=== PATIENT | male | born 1965 | race African-American/Black ===

== ENCOUNTER 2018-09-04 11:33 | Inpatient (IN) | payer OTHER | END 2018-09-08 16:20 | disposition home or self-care (01) | LOC: YASAS 11:33 → Y6N 13:48 ==

== ENCOUNTER 2021-11-06 16:31 | Inpatient (IN) | payer OTHER ==
[2021-11-06 18:26] VITALS: BMI 18.8
[2021-11-07] MEDS ORDERED: NALOXONE HCL 0.4 MG/ML VIAL IM PRN (00:20)
[2021-11-07] MEDS ORDERED: NALOXONE HCL (KLOXXADO) 8 MG SPRAY NS PRN (00:20)
[2021-11-07] MEDS ORDERED: ACETAMINOPHEN 325 MG TABLET (FP) PO PRN (00:20)
[2021-11-07] MEDS ORDERED: LOPERAMIDE HCL 2 MG CAPSULE PO PRN (00:20)
[2021-11-07] MEDS ORDERED: P-EPHED 60MG/TRIPROLIDI 2.5MG TABLET PO PRN (00:20)
[2021-11-07] MEDS ORDERED: guaiFENesin 200 MG/10 ML 10 ML UNIT-DOSE CUPS PO PRN (00:20)
[2021-11-07] MEDS ORDERED: MAGNESIUM CITRATE 300 ML BOTTLE PO PRN (00:20)
[2021-11-07] MEDS ORDERED: NICOTINE POLACRILEX 2 MG GUM BUC PRN (00:20)
[2021-11-07] MEDS ORDERED: MAGNESIUM HYDROX 2400MG/30ML ORAL SUSPENSION 30 ML CUP PO PRN (00:20)
[2021-11-07] MEDS ORDERED: methaDONE HCL 10 MG TABLET PO SCH (07:45)
[2021-11-07] MEDS ORDERED: ALBUTEROL SO4 HFA INHALER IH PRN (08:36)
[2021-11-07 10:07] LABS: HEMATOCRIT 33.4 % (35.4-49); HEMOGLOBIN 11.1 GM/dL (11.7-16.9); MCHC 33.2 g/dl (32.0-35.9); MEAN CELL VOLUME 87.4 fl (80-96); MEAN PLT VOLUME 7.8 fl (7.5-11.1); PLATELET COUNT 368 10^3/uL (134-434); RBC 3.83 M/mm3 (4.00-5.60); RDW 14.2 % (11.9-15.9); WHITE BLOOD COUNT 4.5 K/mm3 (4.0-10.0)
[2021-11-07] MEDS: amLODIPine BESYLATE 10 MG TABLET (FP) PO SCH (10:14)
[2021-11-07] MEDS: FAMOTIDINE 20 MG TABLET PO SCH (10:14)
[2021-11-07] MEDS: FERROUS SO4 325 MG TABLET (FP) PO SCH (10:14)
[2021-11-07] MEDS: PRENATAL VITAMINS W/ FOLIC ACID TABLET (FP) PO SCH (10:15)
[2021-11-07] MEDS: NICOTINE 14 MG/24 HOURS TOPICAL PATCH TD SCH (10:15)
[2021-11-07] MEDS: DOCUSATE SODIUM 100 MG CAPSULE (FP) PO SCH ×2 (10:15→21:39)
[2021-11-07] MEDS: AMOXICILLIN 500 MG CAPSULE (FP) PO SCH ×2 (10:49→21:40)
[2021-11-07] MEDS: EMTRICITAB/RILPIVIRI/TENOF ALA (ODEFSEY) TABLET PO SCH (10:50)
[2021-11-07 11:31] LABS: SYPHILIS W/ RPR CONF NON-REACTIVE (NONREACTIVE)
[2021-11-07 12:20] LABS: BLOOD UREA NITROGEN 19.4 mg/dL (7-18)
[2021-11-07 12:22] LABS: CALCIUM 8.9 mg/dL (8.5-10.1)
[2021-11-07 12:23] LABS: ALBUMIN 2.7 g/dl (3.4-5.0)
[2021-11-07 12:26] LABS: BILIRUBIN,TOTAL 0.2 mg/dL (0.2-1); CREATININE 1.4 mg/dL (0.55-1.3)
[2021-11-07] MEDS: TOLNAFTATE 1% CREAM 15 GM TUBE TP SCH ×2 (14:31→21:45)
[2021-11-07] MEDS: ATORVASTATIN CA 20 MG TABLET (FP) PO SCH (21:39)
[2021-11-07] MEDS: MELATONIN 5 MG TABLETS PO SCH (21:39)
[2021-11-07] MEDS: THIAMINE HCL 100 MG TABLET (FP) PO SCH (21:39)
[2021-11-07] MEDS: TAMSULOSIN HCL 0.4 MG CAP PO SCH (21:40)
[2021-11-07] MEDS: PATIENT'S OWN MEDICATION (NON-FORMULARY) (Pravastatin Sodium [Pravastatin Sodium] 20 MG Ta PO SCH (21:40)
[2021-11-07] MEDS ORDERED: SENNOSIDES 8.6MG TABLET (FP) PO SCH (22:00)
[2021-11-07] MEDS: SENNOSIDES 8.6MG TABLET (FP) PO SCH (23:43)
[2021-11-08] MEDS: EMTRICITAB/RILPIVIRI/TENOF ALA (ODEFSEY) TABLET PO SCH (07:10)
[2021-11-08] MEDS: MAG HYDROX/AL HYDROX/SIMETH 30 ML UNIT-DOSE CUP PO PRN (08:32)
[2021-11-08] MEDS: TOLNAFTATE 1% CREAM 15 GM TUBE TP SCH ×2 (09:30→22:10)
[2021-11-08] MEDS: PRENATAL VITAMINS W/ FOLIC ACID TABLET (FP) PO SCH (09:30)
[2021-11-08] MEDS: DOCUSATE SODIUM 100 MG CAPSULE (FP) PO SCH ×2 (09:31→21:56)
[2021-11-08] MEDS: FERROUS SO4 325 MG TABLET (FP) PO SCH (09:31)
[2021-11-08] MEDS: FAMOTIDINE 20 MG TABLET PO SCH (09:31)
[2021-11-08] MEDS: NICOTINE 14 MG/24 HOURS TOPICAL PATCH TD SCH (09:32)
[2021-11-08] MEDS: amLODIPine BESYLATE 10 MG TABLET (FP) PO SCH (09:32)
[2021-11-08] MEDS: AMOXICILLIN 500 MG CAPSULE (FP) PO SCH ×2 (09:32→21:54)
[2021-11-08] MEDS: SENNOSIDES 8.6MG TABLET (FP) PO SCH (21:54)
[2021-11-08] MEDS: ATORVASTATIN CA 20 MG TABLET (FP) PO SCH (21:55)
[2021-11-08] MEDS: hydrOXYzine PAMOATE 25 MG CAPSULE (FP) PO PRN (21:55)
[2021-11-08] MEDS: PATIENT'S OWN MEDICATION (NON-FORMULARY) (Pravastatin Sodium [Pravastatin Sodium] 20 MG Ta PO SCH (21:55)
[2021-11-08] MEDS: TAMSULOSIN HCL 0.4 MG CAP PO SCH (21:55)
[2021-11-08] MEDS: THIAMINE HCL 100 MG TABLET (FP) PO SCH (21:56)
[2021-11-08] MEDS: MELATONIN 5 MG TABLETS PO SCH (21:56)
[2021-11-09] MEDS: EMTRICITAB/RILPIVIRI/TENOF ALA (ODEFSEY) TABLET PO SCH (07:33)
[2021-11-09] MEDS: IBUPROFEN 400 MG TABLET (FP) PO PRN (08:49)
[2021-11-09] MEDS: amLODIPine BESYLATE 10 MG TABLET (FP) PO SCH (09:56)
[2021-11-09] MEDS: DOCUSATE SODIUM 100 MG CAPSULE (FP) PO SCH ×2 (09:56→21:23)
[2021-11-09] MEDS: PRENATAL VITAMINS W/ FOLIC ACID TABLET (FP) PO SCH (09:56)
[2021-11-09] MEDS: FERROUS SO4 325 MG TABLET (FP) PO SCH (09:56)
[2021-11-09] MEDS: AMOXICILLIN 500 MG CAPSULE (FP) PO SCH ×2 (09:56→21:23)
[2021-11-09] MEDS: FAMOTIDINE 20 MG TABLET PO SCH (09:56)
[2021-11-09] MEDS: NICOTINE 14 MG/24 HOURS TOPICAL PATCH TD SCH (09:57)
[2021-11-09] MEDS: TOLNAFTATE 1% CREAM 15 GM TUBE TP SCH ×2 (09:57→21:27)
[2021-11-09] MEDS: MAG HYDROX/AL HYDROX/SIMETH 30 ML UNIT-DOSE CUP PO PRN (13:06)
[2021-11-09] MEDS: PATIENT'S OWN MEDICATION (NON-FORMULARY) (Pravastatin Sodium [Pravastatin Sodium] 20 MG Ta PO SCH (21:22)
[2021-11-09] MEDS: ATORVASTATIN CA 20 MG TABLET (FP) PO SCH (21:23)
[2021-11-09] MEDS: SENNOSIDES 8.6MG TABLET (FP) PO SCH (21:23)
[2021-11-09] MEDS: THIAMINE HCL 100 MG TABLET (FP) PO SCH (21:23)
[2021-11-09] MEDS: hydrOXYzine PAMOATE 25 MG CAPSULE (FP) PO PRN (21:23)
[2021-11-09] MEDS: TAMSULOSIN HCL 0.4 MG CAP PO SCH (21:23)
[2021-11-09] MEDS: MELATONIN 5 MG TABLETS PO SCH (21:24)
[2021-11-10] MEDS: MAG HYDROX/AL HYDROX/SIMETH 30 ML UNIT-DOSE CUP PO PRN ×2 (06:05→21:22)
[2021-11-10] MEDS: EMTRICITAB/RILPIVIRI/TENOF ALA (ODEFSEY) TABLET PO SCH (07:12)
[2021-11-10] MEDS: FAMOTIDINE 20 MG TABLET PO SCH (09:56)
[2021-11-10] MEDS: amLODIPine BESYLATE 10 MG TABLET (FP) PO SCH (09:56)
[2021-11-10] MEDS: FERROUS SO4 325 MG TABLET (FP) PO SCH (09:56)
[2021-11-10] MEDS: AMOXICILLIN 500 MG CAPSULE (FP) PO SCH ×2 (09:56→21:18)
[2021-11-10] MEDS: DOCUSATE SODIUM 100 MG CAPSULE (FP) PO SCH ×2 (09:56→21:18)
[2021-11-10] MEDS: PRENATAL VITAMINS W/ FOLIC ACID TABLET (FP) PO SCH (09:56)
[2021-11-10] MEDS: NICOTINE 14 MG/24 HOURS TOPICAL PATCH TD SCH (09:57)
[2021-11-10] MEDS: TOLNAFTATE 1% CREAM 15 GM TUBE TP SCH ×2 (09:57→21:19)
[2021-11-10 13:40] LABS: PH,URINE 5.5 (5.0-8.0); URINE APPEARANCE CLEAR; URINE BILIRUBIN NEGATIVE (NEGATIVE); URINE COLOR YELLOW; URINE GLUCOSE (UA) NEGATIVE (NEGATIVE); URINE KETONE NEGATIVE (NEGATIVE); URINE LEUK ESTERASE NEGATIVE (NEGATIVE); URINE NITRITE NEGATIVE (NEGATIVE); URINE PROTEIN NEGATIVE (NEGATIVE); URINE UROBILINOGEN 0.2 mg/dL (0.2-1.0)
[2021-11-10] MEDS: TAMSULOSIN HCL 0.4 MG CAP PO SCH (21:18)
[2021-11-10] MEDS: THIAMINE HCL 100 MG TABLET (FP) PO SCH (21:18)
[2021-11-10] MEDS: SENNOSIDES 8.6MG TABLET (FP) PO SCH (21:18)
[2021-11-10] MEDS: ATORVASTATIN CA 20 MG TABLET (FP) PO SCH (21:18)
[2021-11-10] MEDS: hydrOXYzine PAMOATE 25 MG CAPSULE (FP) PO PRN (21:18)
[2021-11-10] MEDS: MELATONIN 5 MG TABLETS PO SCH (21:18)
[2021-11-10] MEDS: PATIENT'S OWN MEDICATION (NON-FORMULARY) (Pravastatin Sodium [Pravastatin Sodium] 20 MG Ta PO SCH (21:23)
[2021-11-11] MEDS: MAG HYDROX/AL HYDROX/SIMETH 30 ML UNIT-DOSE CUP PO PRN (07:24)
[2021-11-11] MEDS: AMOXICILLIN 500 MG CAPSULE (FP) PO SCH ×2 (10:04→21:08)
[2021-11-11] MEDS: FERROUS SO4 325 MG TABLET (FP) PO SCH (10:04)
[2021-11-11] MEDS: DOCUSATE SODIUM 100 MG CAPSULE (FP) PO SCH ×2 (10:04→21:08)
[2021-11-11] MEDS: NICOTINE 14 MG/24 HOURS TOPICAL PATCH TD SCH (10:05)
[2021-11-11] MEDS: TOLNAFTATE 1% CREAM 15 GM TUBE TP SCH ×2 (10:05→21:08)
[2021-11-11] MEDS: FAMOTIDINE 20 MG TABLET PO SCH (10:05)
[2021-11-11] MEDS: PRENATAL VITAMINS W/ FOLIC ACID TABLET (FP) PO SCH (10:05)
[2021-11-11] MEDS: amLODIPine BESYLATE 10 MG TABLET (FP) PO SCH (10:05)
[2021-11-11] MEDS: EMTRICITAB/RILPIVIRI/TENOF ALA (ODEFSEY) TABLET PO SCH (10:24)
[2021-11-11] MEDS: THIAMINE HCL 100 MG TABLET (FP) PO SCH (21:06)
[2021-11-11] MEDS: TAMSULOSIN HCL 0.4 MG CAP PO SCH (21:06)
[2021-11-11] MEDS: MELATONIN 5 MG TABLETS PO SCH (21:06)
[2021-11-11] MEDS: SENNOSIDES 8.6MG TABLET (FP) PO SCH (21:07)
[2021-11-11] MEDS: hydrOXYzine PAMOATE 25 MG CAPSULE (FP) PO PRN (21:07)
[2021-11-11] MEDS: PATIENT'S OWN MEDICATION (NON-FORMULARY) (Pravastatin Sodium [Pravastatin Sodium] 20 MG Ta PO SCH (21:08)
[2021-11-12] MEDS: MAG HYDROX/AL HYDROX/SIMETH 30 ML UNIT-DOSE CUP PO PRN ×2 (02:24→18:54)
[2021-11-12] MEDS: EMTRICITAB/RILPIVIRI/TENOF ALA (ODEFSEY) TABLET PO SCH (07:24)
[2021-11-12] MEDS: DOCUSATE SODIUM 100 MG CAPSULE (FP) PO SCH ×2 (10:16→21:11)
[2021-11-12] MEDS: PRENATAL VITAMINS W/ FOLIC ACID TABLET (FP) PO SCH (10:16)
[2021-11-12] MEDS: amLODIPine BESYLATE 10 MG TABLET (FP) PO SCH (10:16)
[2021-11-12] MEDS: AMOXICILLIN 500 MG CAPSULE (FP) PO SCH ×2 (10:17→21:11)
[2021-11-12] MEDS: FERROUS SO4 325 MG TABLET (FP) PO SCH (10:17)
[2021-11-12] MEDS: TOLNAFTATE 1% CREAM 15 GM TUBE TP SCH ×2 (10:17→21:13)
[2021-11-12] MEDS: NICOTINE 14 MG/24 HOURS TOPICAL PATCH TD SCH (10:17)
[2021-11-12] MEDS ORDERED: FAMOTIDINE 10 MG TABLET PO SCH (12:00)
[2021-11-12] MEDS: MELATONIN 5 MG TABLETS PO SCH (21:10)
[2021-11-12] MEDS: THIAMINE HCL 100 MG TABLET (FP) PO SCH (21:10)
[2021-11-12] MEDS: SENNOSIDES 8.6MG TABLET (FP) PO SCH (21:11)
[2021-11-12] MEDS: hydrOXYzine PAMOATE 25 MG CAPSULE (FP) PO PRN (21:11)
[2021-11-12] MEDS: TAMSULOSIN HCL 0.4 MG CAP PO SCH (21:11)
[2021-11-12] MEDS: FAMOTIDINE 10 MG TABLET PO SCH (21:13)
[2021-11-12] MEDS: PATIENT'S OWN MEDICATION (NON-FORMULARY) (Pravastatin Sodium [Pravastatin Sodium] 20 MG Ta PO SCH (21:13)
[2021-11-13] MEDS: MAG HYDROX/AL HYDROX/SIMETH 30 ML UNIT-DOSE CUP PO PRN ×2 (07:05→17:20)
[2021-11-13] MEDS: EMTRICITAB/RILPIVIRI/TENOF ALA (ODEFSEY) TABLET PO SCH (07:06)
[2021-11-13] MEDS: PRENATAL VITAMINS W/ FOLIC ACID TABLET (FP) PO SCH (09:54)
[2021-11-13] MEDS: amLODIPine BESYLATE 10 MG TABLET (FP) PO SCH (09:54)
[2021-11-13] MEDS: FERROUS SO4 325 MG TABLET (FP) PO SCH (09:54)
[2021-11-13] MEDS: DOCUSATE SODIUM 100 MG CAPSULE (FP) PO SCH ×2 (09:54→21:21)
[2021-11-13] MEDS: AMOXICILLIN 500 MG CAPSULE (FP) PO SCH ×2 (09:54→21:20)
[2021-11-13] MEDS: TOLNAFTATE 1% CREAM 15 GM TUBE TP SCH ×2 (09:55→21:21)
[2021-11-13] MEDS: NICOTINE 14 MG/24 HOURS TOPICAL PATCH TD SCH (09:55)
[2021-11-13] MEDS: THIAMINE HCL 100 MG TABLET (FP) PO SCH (21:19)
[2021-11-13] MEDS: MELATONIN 5 MG TABLETS PO SCH (21:19)
[2021-11-13] MEDS: FAMOTIDINE 10 MG TABLET PO SCH (21:20)
[2021-11-13] MEDS: TAMSULOSIN HCL 0.4 MG CAP PO SCH (21:21)
[2021-11-13] MEDS: SENNOSIDES 8.6MG TABLET (FP) PO SCH (21:21)
[2021-11-13] MEDS: PATIENT'S OWN MEDICATION (NON-FORMULARY) (Pravastatin Sodium [Pravastatin Sodium] 20 MG Ta PO SCH (21:21)
[2021-11-14] MEDS: EMTRICITAB/RILPIVIRI/TENOF ALA (ODEFSEY) TABLET PO SCH (07:58)
[2021-11-14] MEDS: FERROUS SO4 325 MG TABLET (FP) PO SCH (10:08)
[2021-11-14] MEDS: amLODIPine BESYLATE 10 MG TABLET (FP) PO SCH (10:08)
[2021-11-14] MEDS: DOCUSATE SODIUM 100 MG CAPSULE (FP) PO SCH ×2 (10:08→21:39)
[2021-11-14] MEDS: TOLNAFTATE 1% CREAM 15 GM TUBE TP SCH ×2 (10:08→21:40)
[2021-11-14] MEDS: PRENATAL VITAMINS W/ FOLIC ACID TABLET (FP) PO SCH (10:08)
[2021-11-14] MEDS: NICOTINE 14 MG/24 HOURS TOPICAL PATCH TD SCH (10:08)
[2021-11-14] MEDS: MAG HYDROX/AL HYDROX/SIMETH 30 ML UNIT-DOSE CUP PO PRN (10:09)
[2021-11-14] MEDS: TAMSULOSIN HCL 0.4 MG CAP PO SCH (21:39)
[2021-11-14] MEDS: SENNOSIDES 8.6MG TABLET (FP) PO SCH (21:39)
[2021-11-14] MEDS: PATIENT'S OWN MEDICATION (NON-FORMULARY) (Pravastatin Sodium [Pravastatin Sodium] 20 MG Ta PO SCH (21:39)
[2021-11-14] MEDS: THIAMINE HCL 100 MG TABLET (FP) PO SCH (21:39)
[2021-11-14] MEDS: MELATONIN 5 MG TABLETS PO SCH (21:39)
[2021-11-14] MEDS: FAMOTIDINE 10 MG TABLET PO SCH (21:40)
[2021-11-15] MEDS: EMTRICITAB/RILPIVIRI/TENOF ALA (ODEFSEY) TABLET PO SCH (07:08)
[2021-11-15] MEDS: DOCUSATE SODIUM 100 MG CAPSULE (FP) PO SCH ×2 (09:21→21:10)
[2021-11-15] MEDS: FERROUS SO4 325 MG TABLET (FP) PO SCH (09:21)
[2021-11-15] MEDS: amLODIPine BESYLATE 10 MG TABLET (FP) PO SCH (09:22)
[2021-11-15] MEDS: NICOTINE 14 MG/24 HOURS TOPICAL PATCH TD SCH (09:22)
[2021-11-15] MEDS: PRENATAL VITAMINS W/ FOLIC ACID TABLET (FP) PO SCH (09:22)
[2021-11-15] MEDS: TOLNAFTATE 1% CREAM 15 GM TUBE TP SCH ×2 (09:22→21:12)
[2021-11-15] MEDS: MELATONIN 5 MG TABLETS PO SCH (21:10)
[2021-11-15] MEDS: THIAMINE HCL 100 MG TABLET (FP) PO SCH (21:10)
[2021-11-15] MEDS: TAMSULOSIN HCL 0.4 MG CAP PO SCH (21:10)
[2021-11-15] MEDS: FAMOTIDINE 10 MG TABLET PO SCH (21:11)
[2021-11-15] MEDS: SENNOSIDES 8.6MG TABLET (FP) PO SCH (21:11)
[2021-11-15] MEDS: PATIENT'S OWN MEDICATION (NON-FORMULARY) (Pravastatin Sodium [Pravastatin Sodium] 20 MG Ta PO SCH (21:12)
[2021-11-16] MEDS: MAG HYDROX/AL HYDROX/SIMETH 30 ML UNIT-DOSE CUP PO PRN (07:37)
[2021-11-16] MEDS: EMTRICITAB/RILPIVIRI/TENOF ALA (ODEFSEY) TABLET PO SCH (07:38)
[2021-11-16] MEDS: amLODIPine BESYLATE 10 MG TABLET (FP) PO SCH (09:59)
[2021-11-16] MEDS: PRENATAL VITAMINS W/ FOLIC ACID TABLET (FP) PO SCH (09:59)
[2021-11-16] MEDS: TOLNAFTATE 1% CREAM 15 GM TUBE TP SCH ×2 (09:59→21:09)
[2021-11-16] MEDS: DOCUSATE SODIUM 100 MG CAPSULE (FP) PO SCH ×2 (09:59→21:09)
[2021-11-16] MEDS: FERROUS SO4 325 MG TABLET (FP) PO SCH (09:59)
[2021-11-16] MEDS: NICOTINE 14 MG/24 HOURS TOPICAL PATCH TD SCH (10:00)
[2021-11-16] MEDS: MELATONIN 5 MG TABLETS PO SCH (21:08)
[2021-11-16] MEDS: THIAMINE HCL 100 MG TABLET (FP) PO SCH (21:08)
[2021-11-16] MEDS: SENNOSIDES 8.6MG TABLET (FP) PO SCH (21:09)
[2021-11-16] MEDS: PATIENT'S OWN MEDICATION (NON-FORMULARY) (Pravastatin Sodium [Pravastatin Sodium] 20 MG Ta PO SCH (21:09)
[2021-11-16] MEDS: FAMOTIDINE 10 MG TABLET PO SCH (21:09)
[2021-11-16] MEDS: TAMSULOSIN HCL 0.4 MG CAP PO SCH (21:09)
[2021-11-17] MEDS: EMTRICITAB/RILPIVIRI/TENOF ALA (ODEFSEY) TABLET PO SCH (07:12)
[2021-11-17] MEDS: FERROUS SO4 325 MG TABLET (FP) PO SCH (10:05)
[2021-11-17] MEDS: PRENATAL VITAMINS W/ FOLIC ACID TABLET (FP) PO SCH (10:05)
[2021-11-17] MEDS: amLODIPine BESYLATE 10 MG TABLET (FP) PO SCH (10:05)
[2021-11-17] MEDS: DOCUSATE SODIUM 100 MG CAPSULE (FP) PO SCH ×2 (10:05→21:14)
[2021-11-17] MEDS: NICOTINE 14 MG/24 HOURS TOPICAL PATCH TD SCH (10:06)
[2021-11-17] MEDS: TOLNAFTATE 1% CREAM 15 GM TUBE TP SCH ×2 (10:06→21:15)
[2021-11-17] MEDS: TAMSULOSIN HCL 0.4 MG CAP PO SCH (21:14)
[2021-11-17] MEDS: SENNOSIDES 8.6MG TABLET (FP) PO SCH (21:14)
[2021-11-17] MEDS: THIAMINE HCL 100 MG TABLET (FP) PO SCH (21:14)
[2021-11-17] MEDS: MELATONIN 5 MG TABLETS PO SCH (21:14)
[2021-11-17] MEDS: hydrOXYzine PAMOATE 25 MG CAPSULE (FP) PO PRN (21:14)
[2021-11-17] MEDS: PATIENT'S OWN MEDICATION (NON-FORMULARY) (Pravastatin Sodium [Pravastatin Sodium] 20 MG Ta PO SCH (21:15)
[2021-11-17] MEDS: FAMOTIDINE 10 MG TABLET PO SCH (21:15)
[2021-11-18] MEDS: EMTRICITAB/RILPIVIRI/TENOF ALA (ODEFSEY) TABLET PO SCH (07:06)
[2021-11-18] MEDS: amLODIPine BESYLATE 10 MG TABLET (FP) PO SCH (09:49)
[2021-11-18] MEDS: FERROUS SO4 325 MG TABLET (FP) PO SCH (09:49)
[2021-11-18] MEDS: DOCUSATE SODIUM 100 MG CAPSULE (FP) PO SCH ×2 (09:49→21:17)
[2021-11-18] MEDS: PRENATAL VITAMINS W/ FOLIC ACID TABLET (FP) PO SCH (09:50)
[2021-11-18] MEDS: NICOTINE 14 MG/24 HOURS TOPICAL PATCH TD SCH (09:50)
[2021-11-18] MEDS: TOLNAFTATE 1% CREAM 15 GM TUBE TP SCH ×2 (09:50→21:19)
[2021-11-18] MEDS: MAG HYDROX/AL HYDROX/SIMETH 30 ML UNIT-DOSE CUP PO PRN (09:51)
[2021-11-18] MEDS: THIAMINE HCL 100 MG TABLET (FP) PO SCH (21:17)
[2021-11-18] MEDS: FAMOTIDINE 10 MG TABLET PO SCH (21:17)
[2021-11-18] MEDS: SENNOSIDES 8.6MG TABLET (FP) PO SCH (21:17)
[2021-11-18] MEDS: TAMSULOSIN HCL 0.4 MG CAP PO SCH (21:17)
[2021-11-18] MEDS: PATIENT'S OWN MEDICATION (NON-FORMULARY) (Pravastatin Sodium [Pravastatin Sodium] 20 MG Ta PO SCH (21:18)
[2021-11-18] MEDS: MELATONIN 5 MG TABLETS PO SCH (21:18)
[2021-11-19] MEDS: IBUPROFEN 400 MG TABLET (FP) PO PRN ×2 (06:39→15:12)
[2021-11-19] MEDS: EMTRICITAB/RILPIVIRI/TENOF ALA (ODEFSEY) TABLET PO SCH (07:08)
[2021-11-19] MEDS: NICOTINE 14 MG/24 HOURS TOPICAL PATCH TD SCH (09:40)
[2021-11-19] MEDS: TOLNAFTATE 1% CREAM 15 GM TUBE TP SCH ×2 (09:40→21:16)
[2021-11-19] MEDS: PRENATAL VITAMINS W/ FOLIC ACID TABLET (FP) PO SCH (09:40)
[2021-11-19] MEDS: amLODIPine BESYLATE 10 MG TABLET (FP) PO SCH (09:40)
[2021-11-19] MEDS: DOCUSATE SODIUM 100 MG CAPSULE (FP) PO SCH ×2 (09:40→21:15)
[2021-11-19] MEDS: FERROUS SO4 325 MG TABLET (FP) PO SCH (09:40)
[2021-11-19] MEDS: MAG HYDROX/AL HYDROX/SIMETH 30 ML UNIT-DOSE CUP PO PRN ×2 (09:41→23:49)
[2021-11-19] MEDS: SENNOSIDES 8.6MG TABLET (FP) PO SCH (21:15)
[2021-11-19] MEDS: TAMSULOSIN HCL 0.4 MG CAP PO SCH (21:15)
[2021-11-19] MEDS: MELATONIN 5 MG TABLETS PO SCH (21:15)
[2021-11-19] MEDS: THIAMINE HCL 100 MG TABLET (FP) PO SCH (21:15)
[2021-11-19] MEDS: PATIENT'S OWN MEDICATION (NON-FORMULARY) (Pravastatin Sodium [Pravastatin Sodium] 20 MG Ta PO SCH (21:16)
[2021-11-19] MEDS: FAMOTIDINE 10 MG TABLET PO SCH (21:16)
[2021-11-20] MEDS: EMTRICITAB/RILPIVIRI/TENOF ALA (ODEFSEY) TABLET PO SCH (07:12)
[2021-11-20] MEDS: NICOTINE 14 MG/24 HOURS TOPICAL PATCH TD SCH (10:00)
[2021-11-20] MEDS: DOCUSATE SODIUM 100 MG CAPSULE (FP) PO SCH ×2 (10:00→21:01)
[2021-11-20] MEDS: amLODIPine BESYLATE 10 MG TABLET (FP) PO SCH (10:00)
[2021-11-20] MEDS: PRENATAL VITAMINS W/ FOLIC ACID TABLET (FP) PO SCH (10:00)
[2021-11-20] MEDS: TOLNAFTATE 1% CREAM 15 GM TUBE TP SCH ×2 (10:00→21:02)
[2021-11-20] MEDS: FERROUS SO4 325 MG TABLET (FP) PO SCH (10:00)
[2021-11-20] MEDS: MAG HYDROX/AL HYDROX/SIMETH 30 ML UNIT-DOSE CUP PO PRN (12:22)
[2021-11-20] MEDS: THIAMINE HCL 100 MG TABLET (FP) PO SCH (21:00)
[2021-11-20] MEDS: MELATONIN 5 MG TABLETS PO SCH (21:00)
[2021-11-20] MEDS: SENNOSIDES 8.6MG TABLET (FP) PO SCH (21:01)
[2021-11-20] MEDS: TAMSULOSIN HCL 0.4 MG CAP PO SCH (21:01)
[2021-11-20] MEDS: FAMOTIDINE 10 MG TABLET PO SCH (21:02)
[2021-11-20] MEDS: PATIENT'S OWN MEDICATION (NON-FORMULARY) (Pravastatin Sodium [Pravastatin Sodium] 20 MG Ta PO SCH (21:02)
[2021-11-20] MEDS: IBUPROFEN 400 MG TABLET (FP) PO PRN (21:40)
[2021-11-21] MEDS: EMTRICITAB/RILPIVIRI/TENOF ALA (ODEFSEY) TABLET PO SCH (07:05)
[2021-11-21] MEDS: MAG HYDROX/AL HYDROX/SIMETH 30 ML UNIT-DOSE CUP PO PRN ×2 (07:35→16:39)
[2021-11-21] MEDS: amLODIPine BESYLATE 10 MG TABLET (FP) PO SCH (09:24)
[2021-11-21] MEDS: PRENATAL VITAMINS W/ FOLIC ACID TABLET (FP) PO SCH (09:24)
[2021-11-21] MEDS: FERROUS SO4 325 MG TABLET (FP) PO SCH (09:24)
[2021-11-21] MEDS: DOCUSATE SODIUM 100 MG CAPSULE (FP) PO SCH ×2 (09:24→21:19)
[2021-11-21] MEDS: NICOTINE 14 MG/24 HOURS TOPICAL PATCH TD SCH (09:25)
[2021-11-21] MEDS: TOLNAFTATE 1% CREAM 15 GM TUBE TP SCH ×2 (09:25→21:20)
[2021-11-21] MEDS: TAMSULOSIN HCL 0.4 MG CAP PO SCH (21:19)
[2021-11-21] MEDS: THIAMINE HCL 100 MG TABLET (FP) PO SCH (21:19)
[2021-11-21] MEDS: SENNOSIDES 8.6MG TABLET (FP) PO SCH (21:19)
[2021-11-21] MEDS: MELATONIN 5 MG TABLETS PO SCH (21:19)
[2021-11-21] MEDS: FAMOTIDINE 10 MG TABLET PO SCH (21:20)
[2021-11-21] MEDS: PATIENT'S OWN MEDICATION (NON-FORMULARY) (Pravastatin Sodium [Pravastatin Sodium] 20 MG Ta PO SCH (21:20)
[2021-11-22] MEDS ORDERED: methaDONE HCL 10 MG TABLET PO SCH (06:00)
[2021-11-22] MEDS: EMTRICITAB/RILPIVIRI/TENOF ALA (ODEFSEY) TABLET PO SCH (07:05)
[2021-11-22] MEDS: amLODIPine BESYLATE 10 MG TABLET (FP) PO SCH (09:53)
[2021-11-22] MEDS: DOCUSATE SODIUM 100 MG CAPSULE (FP) PO SCH ×2 (09:53→21:50)
[2021-11-22] MEDS: NICOTINE 14 MG/24 HOURS TOPICAL PATCH TD SCH (09:54)
[2021-11-22] MEDS: FERROUS SO4 325 MG TABLET (FP) PO SCH (09:54)
[2021-11-22] MEDS: TOLNAFTATE 1% CREAM 15 GM TUBE TP SCH ×3 (09:54→21:51)
[2021-11-22] MEDS: PRENATAL VITAMINS W/ FOLIC ACID TABLET (FP) PO SCH (09:54)
[2021-11-22] MEDS: FAMOTIDINE 10 MG TABLET PO SCH (21:00)
[2021-11-22] MEDS: SENNOSIDES 8.6MG TABLET (FP) PO SCH (21:50)
[2021-11-22] MEDS: PATIENT'S OWN MEDICATION (NON-FORMULARY) (Pravastatin Sodium [Pravastatin Sodium] 20 MG Ta PO SCH (21:50)
[2021-11-22] MEDS: THIAMINE HCL 100 MG TABLET (FP) PO SCH (21:50)
[2021-11-22] MEDS: TAMSULOSIN HCL 0.4 MG CAP PO SCH (21:50)
[2021-11-22] MEDS: MELATONIN 5 MG TABLETS PO SCH (21:51)
[2021-11-23] MEDS: EMTRICITAB/RILPIVIRI/TENOF ALA (ODEFSEY) TABLET PO SCH (07:03)
[2021-11-23] MEDS: amLODIPine BESYLATE 10 MG TABLET (FP) PO SCH (09:59)
[2021-11-23] MEDS: FERROUS SO4 325 MG TABLET (FP) PO SCH (09:59)
[2021-11-23] MEDS: DOCUSATE SODIUM 100 MG CAPSULE (FP) PO SCH ×2 (09:59→21:53)
[2021-11-23] MEDS: TOLNAFTATE 1% CREAM 15 GM TUBE TP SCH ×2 (10:00→21:55)
[2021-11-23] MEDS: NICOTINE 14 MG/24 HOURS TOPICAL PATCH TD SCH (10:00)
[2021-11-23] MEDS: PRENATAL VITAMINS W/ FOLIC ACID TABLET (FP) PO SCH (10:00)
[2021-11-23] MEDS: MAG HYDROX/AL HYDROX/SIMETH 30 ML UNIT-DOSE CUP PO PRN (10:01)
[2021-11-23] MEDS: FAMOTIDINE 10 MG TABLET PO SCH (21:20)
[2021-11-23] MEDS: PATIENT'S OWN MEDICATION (NON-FORMULARY) (Pravastatin Sodium [Pravastatin Sodium] 20 MG Ta PO SCH (21:53)
[2021-11-23] MEDS: SENNOSIDES 8.6MG TABLET (FP) PO SCH (21:53)
[2021-11-23] MEDS: MELATONIN 5 MG TABLETS PO SCH (21:54)
[2021-11-23] MEDS: THIAMINE HCL 100 MG TABLET (FP) PO SCH (21:55)
[2021-11-23] MEDS: TAMSULOSIN HCL 0.4 MG CAP PO SCH (22:07)
[2021-11-24] MEDS: EMTRICITAB/RILPIVIRI/TENOF ALA (ODEFSEY) TABLET PO SCH (07:52)
[2021-11-24] MEDS: amLODIPine BESYLATE 10 MG TABLET (FP) PO SCH (09:49)
[2021-11-24] MEDS: PRENATAL VITAMINS W/ FOLIC ACID TABLET (FP) PO SCH (09:50)
[2021-11-24] MEDS: FERROUS SO4 325 MG TABLET (FP) PO SCH (09:50)
[2021-11-24] MEDS: DOCUSATE SODIUM 100 MG CAPSULE (FP) PO SCH ×2 (09:50→21:04)
[2021-11-24] MEDS: TOLNAFTATE 1% CREAM 15 GM TUBE TP SCH ×2 (09:50→21:05)
[2021-11-24] MEDS: NICOTINE 14 MG/24 HOURS TOPICAL PATCH TD SCH (09:50)
[2021-11-24] MEDS: SENNOSIDES 8.6MG TABLET (FP) PO SCH (21:04)
[2021-11-24] MEDS: MELATONIN 5 MG TABLETS PO SCH (21:04)
[2021-11-24] MEDS: THIAMINE HCL 100 MG TABLET (FP) PO SCH (21:04)
[2021-11-24] MEDS: TAMSULOSIN HCL 0.4 MG CAP PO SCH (21:04)
[2021-11-24] MEDS: FAMOTIDINE 10 MG TABLET PO SCH (21:05)
[2021-11-24] MEDS: PATIENT'S OWN MEDICATION (NON-FORMULARY) (Pravastatin Sodium [Pravastatin Sodium] 20 MG Ta PO SCH (21:05)
[2021-11-25] MEDS: EMTRICITAB/RILPIVIRI/TENOF ALA (ODEFSEY) TABLET PO SCH (07:07)
[2021-11-25] MEDS: FERROUS SO4 325 MG TABLET (FP) PO SCH (09:58)
[2021-11-25] MEDS: amLODIPine BESYLATE 10 MG TABLET (FP) PO SCH (09:58)
[2021-11-25] MEDS: PRENATAL VITAMINS W/ FOLIC ACID TABLET (FP) PO SCH (09:58)
[2021-11-25] MEDS: DOCUSATE SODIUM 100 MG CAPSULE (FP) PO SCH ×2 (09:58→21:40)
[2021-11-25] MEDS: NICOTINE 14 MG/24 HOURS TOPICAL PATCH TD SCH (09:59)
[2021-11-25] MEDS: TOLNAFTATE 1% CREAM 15 GM TUBE TP SCH ×2 (09:59→21:42)
[2021-11-25] MEDS: MAG HYDROX/AL HYDROX/SIMETH 30 ML UNIT-DOSE CUP PO PRN (17:01)
[2021-11-25] MEDS: FAMOTIDINE 10 MG TABLET PO SCH (21:11)
[2021-11-25] MEDS: PATIENT'S OWN MEDICATION (NON-FORMULARY) (Pravastatin Sodium [Pravastatin Sodium] 20 MG Ta PO SCH (21:40)
[2021-11-25] MEDS: TAMSULOSIN HCL 0.4 MG CAP PO SCH (21:40)
[2021-11-25] MEDS: SENNOSIDES 8.6MG TABLET (FP) PO SCH (21:40)
[2021-11-25] MEDS: MELATONIN 5 MG TABLETS PO SCH (21:41)
[2021-11-25] MEDS: THIAMINE HCL 100 MG TABLET (FP) PO SCH (21:41)
[2021-11-26 06:55] VITALS: RESP 18; TEMP 97.5
[2021-11-26] MEDS: EMTRICITAB/RILPIVIRI/TENOF ALA (ODEFSEY) TABLET PO SCH (07:20)
[2021-11-26] MEDS: NICOTINE 14 MG/24 HOURS TOPICAL PATCH TD SCH (09:09)
[2021-11-26] MEDS: DOCUSATE SODIUM 100 MG CAPSULE (FP) PO SCH (09:09)
[2021-11-26] MEDS: PRENATAL VITAMINS W/ FOLIC ACID TABLET (FP) PO SCH (09:09)
[2021-11-26] MEDS: amLODIPine BESYLATE 10 MG TABLET (FP) PO SCH (09:09)
[2021-11-26] MEDS: FERROUS SO4 325 MG TABLET (FP) PO SCH (09:09)
[2021-11-26] MEDS: TOLNAFTATE 1% CREAM 15 GM TUBE TP SCH (09:10)
[2021-11-26 09:15] VITALS: BP 105/53; PULSE 85
== END 2021-11-26 09:26 | disposition home or self-care (01) | DRG 772 ==
LOC: YASAS 16:31 → Y3E 11-07 00:20
PROVIDERS: ADMIT Surgery; ATTEND Psychiatry & Neurology Pain Medicine
PROC: HZ42ZZZ Group Counseling for Substance Abuse Treatment, Cognitive-Behavioral (ICD-10-PCS; principal; 2021-11-07)
DX: F11.20 Opioid dependence, uncomplicated (principal); F14.20 Cocaine dependence, uncomplicated; F17.210 Nicotine dependence, cigarettes, uncomplicated; Z21 Asymptomatic human immunodeficiency virus [HIV] infection status; F32.A Depression, unspecified; I10 Essential (primary) hypertension; E78.5 Hyperlipidemia, unspecified; N40.0 Benign prostatic hyperplasia without lower urinary tract symptoms; B35.1 Tinea unguium; R63.4 Abnormal weight loss; Z68.1 Body mass index [BMI] 19.9 or less, adult; Z88.2 Allergy status to sulfonamides; Z88.8 Allergy status to other drugs, medicaments and biological substances; Z91.014 Allergy to mammalian meats
CPT/HCPCS: 36415; 80053; 81003; 82962; 85027; 86780; 86803; 87522; 87811; C9803-CS; U0003; U0005

== ENCOUNTER 2022-01-21 12:56 | Inpatient (IN) | payer OTHER ==
[2022-01-21 14:35] VITALS: BMI 20.3
[2022-01-21] MEDS ORDERED: LOPERAMIDE HCL 2 MG CAPSULE PO PRN (15:44)
[2022-01-21] MEDS ORDERED: MAG HYDROX/AL HYDROX/SIMETH 30 ML UNIT-DOSE CUP PO PRN (15:44)
[2022-01-21] MEDS ORDERED: METHOCARBAMOL 500 MG TABLET PO PRN (15:44)
[2022-01-21] MEDS ORDERED: BENZOCAINE/MENTHOL (CHLORASEPTIC ) LOZENGE MM PRN (15:44)
[2022-01-21] MEDS ORDERED: NALOXONE HCL (KLOXXADO) 8 MG SPRAY NS PRN (15:44)
[2022-01-21] MEDS ORDERED: ONDANSETRON *ODT* 4 MG TABLET SL PRN (15:44)
[2022-01-21] MEDS ORDERED: MAGNESIUM CITRATE 300 ML BOTTLE PO PRN (15:44)
[2022-01-21] MEDS ORDERED: IBUPROFEN 400 MG TABLET (FP) PO PRN (15:44)
[2022-01-21] MEDS ORDERED: ACETAMINOPHEN 325 MG TABLET (FP) PO PRN ×2 (15:44)
[2022-01-21] MEDS ORDERED: DICYCLOMINE HCL 10 MG CAPSULE PO PRN (15:44)
[2022-01-21] MEDS ORDERED: BISMUTH SUBSALICYLATE 524 MG/30 ML PO PRN (15:44)
[2022-01-21] MEDS ORDERED: IBUPROFEN 600 MG TABLET (FP) PO PRN (15:44)
[2022-01-21] MEDS ORDERED: MAGNESIUM HYDROX 2400MG/30ML ORAL SUSPENSION 30 ML CUP PO PRN (15:44)
[2022-01-21] MEDS ORDERED: NICOTINE 10 MG CARTRIDGE (INHALER) IH PRN (15:44)
[2022-01-21] MEDS ORDERED: ALBUTEROL SO4 HFA INHALER IH PRN (15:49)
[2022-01-21] MEDS ORDERED: PATIENT'S OWN MEDICATION (NON-FORMULARY) (Pravastatin Sodium [Pravastatin Sodium] 20 MG Ta PO SCH (18:30)
[2022-01-21] MEDS: FERROUS SO4 325 MG TABLET (FP) PO SCH (19:12)
[2022-01-21] MEDS: amLODIPine BESYLATE 10 MG TABLET (FP) PO SCH (19:13)
[2022-01-21] MEDS: FAMOTIDINE 20 MG TABLET PO SCH (19:13)
[2022-01-21] MEDS: EMTRICITAB/RILPIVIRI/TENOF ALA (ODEFSEY) TABLET PO SCH (19:13)
[2022-01-21] MEDS ORDERED: chlordiazePOXIDE HCL 25 MG CAPSULE ONE (22:58)
[2022-01-21] MEDS: TAMSULOSIN HCL 0.4 MG CAP PO SCH (22:59)
[2022-01-21] MEDS: THIAMINE HCL 100 MG TABLET (FP) PO SCH (22:59)
[2022-01-21] MEDS: ATORVASTATIN CA 20 MG TABLET (FP) PO SCH (22:59)
[2022-01-21] MEDS: chlordiazePOXIDE HCL 25 MG CAPSULE PO SCH (22:59)
[2022-01-21] MEDS: MELATONIN 5 MG TABLETS PO SCH (22:59)
[2022-01-22] MEDS ORDERED: chlordiazePOXIDE HCL 25 MG CAPSULE ONE ×2 (05:06→10:43)
[2022-01-22] MEDS: chlordiazePOXIDE HCL 25 MG CAPSULE PO SCH ×4 (05:24→22:00)
[2022-01-22] MEDS ORDERED: methaDONE HCL 10 MG TABLET PO ONE (10:07)
[2022-01-22] MEDS: EMTRICITAB/RILPIVIRI/TENOF ALA (ODEFSEY) TABLET PO SCH (10:48)
[2022-01-22] MEDS: FAMOTIDINE 20 MG TABLET PO SCH ×2 (10:48→22:31)
[2022-01-22] MEDS: PRENATAL VITAMINS W/ FOLIC ACID TABLET (FP) PO SCH ×2 (10:49→15:28)
[2022-01-22] MEDS: amLODIPine BESYLATE 10 MG TABLET (FP) PO SCH (10:50)
[2022-01-22] MEDS: FERROUS SO4 325 MG TABLET (FP) PO SCH (10:50)
[2022-01-22 11:12] LABS: HEMATOCRIT 33.1 % (35.4-49); HEMOGLOBIN 10.4 GM/dL (11.7-16.9); MCH 27.8 pg (25.7-33.7); MCHC 31.4 g/dl (32.0-35.9); MEAN CELL VOLUME 88.5 fl (80-96); MEAN PLT VOLUME 8.4 fl (7.5-11.1); PLATELET COUNT 204 10^3/uL (134-434); RBC 3.74 M/mm3 (4.00-5.60); RDW 17.2 % (11.9-15.9)
[2022-01-22] MEDS ORDERED: FLU VACC QS2022-23(6MOS UP)/PF 60 MCG/0.5 ML SYRINGE IM ONE (12:00)
[2022-01-22] MEDS ORDERED: PNEUMOC 20-VAL CONJ-DIP CRM/PF 0.5 ML SYRINGE IM ONE (12:00)
[2022-01-22 12:39] LABS: CALCIUM 8.9 mg/dL (8.5-10.1)
[2022-01-22 12:41] LABS: BLOOD UREA NITROGEN 18.2 mg/dL (7-18)
[2022-01-22 12:44] LABS: CREATININE 1.5 mg/dL (0.55-1.3)
[2022-01-22 12:46] LABS: BILIRUBIN,TOTAL 0.2 mg/dL (0.2-1)
[2022-01-22] MEDS: THIAMINE HCL 100 MG TABLET (FP) PO SCH (22:00)
[2022-01-22] MEDS: TAMSULOSIN HCL 0.4 MG CAP PO SCH (22:00)
[2022-01-22] MEDS: ATORVASTATIN CA 20 MG TABLET (FP) PO SCH (22:00)
[2022-01-22] MEDS: MELATONIN 5 MG TABLETS PO SCH (22:00)
[2022-01-23] MEDS ORDERED: methaDONE HCL 10 MG TABLET PO SCH (06:00)
[2022-01-23] MEDS: chlordiazePOXIDE HCL 25 MG CAPSULE PO SCH ×4 (06:47→23:08)
[2022-01-23] MEDS ORDERED: FAMOTIDINE 20 MG TABLET PO SCH (10:00)
[2022-01-23] MEDS: amLODIPine BESYLATE 10 MG TABLET (FP) PO SCH (10:56)
[2022-01-23] MEDS: FAMOTIDINE 20 MG TABLET PO SCH ×2 (10:56→11:11)
[2022-01-23] MEDS: PRENATAL VITAMINS W/ FOLIC ACID TABLET (FP) PO SCH (10:56)
[2022-01-23] MEDS: EMTRICITAB/RILPIVIRI/TENOF ALA (ODEFSEY) TABLET PO SCH (10:56)
[2022-01-23] MEDS: FERROUS SO4 325 MG TABLET (FP) PO SCH (10:57)
[2022-01-23] MEDS: ATORVASTATIN CA 20 MG TABLET (FP) PO SCH (23:08)
[2022-01-23] MEDS: MELATONIN 5 MG TABLETS PO SCH (23:08)
[2022-01-23] MEDS: THIAMINE HCL 100 MG TABLET (FP) PO SCH (23:08)
[2022-01-23] MEDS: TAMSULOSIN HCL 0.4 MG CAP PO SCH (23:08)
[2022-01-24] MEDS: chlordiazePOXIDE HCL 10 MG CAPSULE PO SCH ×4 (05:46→22:57)
[2022-01-24] MEDS: EMTRICITAB/RILPIVIRI/TENOF ALA (ODEFSEY) TABLET PO SCH (07:05)
[2022-01-24] MEDS: FAMOTIDINE 20 MG TABLET PO SCH (09:32)
[2022-01-24] MEDS: FERROUS SO4 325 MG TABLET (FP) PO SCH (09:32)
[2022-01-24] MEDS: PRENATAL VITAMINS W/ FOLIC ACID TABLET (FP) PO SCH (09:33)
[2022-01-24] MEDS: amLODIPine BESYLATE 10 MG TABLET (FP) PO SCH (10:17)
[2022-01-24 13:24] LABS: CREATININE 1.5 mg/dL (0.55-1.3)
[2022-01-24] MEDS: ATORVASTATIN CA 20 MG TABLET (FP) PO SCH (22:56)
[2022-01-24] MEDS: THIAMINE HCL 100 MG TABLET (FP) PO SCH (22:56)
[2022-01-24] MEDS: MELATONIN 5 MG TABLETS PO SCH (22:56)
[2022-01-24] MEDS: TAMSULOSIN HCL 0.4 MG CAP PO SCH (22:56)
[2022-01-25] MEDS: chlordiazePOXIDE HCL 10 MG CAPSULE PO SCH ×2 (06:00→18:36)
[2022-01-25] MEDS: EMTRICITAB/RILPIVIRI/TENOF ALA (ODEFSEY) TABLET PO SCH (08:00)
[2022-01-25] MEDS: FERROUS SO4 325 MG TABLET (FP) PO SCH (09:46)
[2022-01-25] MEDS: PRENATAL VITAMINS W/ FOLIC ACID TABLET (FP) PO SCH (09:46)
[2022-01-25] MEDS: FAMOTIDINE 20 MG TABLET PO SCH (09:46)
[2022-01-25] MEDS: amLODIPine BESYLATE 10 MG TABLET (FP) PO SCH (10:01)
[2022-01-25] MEDS: TAMSULOSIN HCL 0.4 MG CAP PO SCH (23:13)
[2022-01-25] MEDS: MELATONIN 5 MG TABLETS PO SCH (23:13)
[2022-01-25] MEDS: ATORVASTATIN CA 20 MG TABLET (FP) PO SCH (23:13)
[2022-01-25] MEDS: THIAMINE HCL 100 MG TABLET (FP) PO SCH (23:13)
[2022-01-26] MEDS ORDERED: chlordiazePOXIDE HCL 10 MG CAPSULE PO ONE (05:00)
[2022-01-26] MEDS: EMTRICITAB/RILPIVIRI/TENOF ALA (ODEFSEY) TABLET PO SCH (07:47)
[2022-01-26] MEDS ORDERED: TRIMETHOBENZAMIDE HCL 200MG/2ML INJ IM ONE (09:00)
[2022-01-26] MEDS: FAMOTIDINE 20 MG TABLET PO SCH (11:17)
[2022-01-26] MEDS: amLODIPine BESYLATE 10 MG TABLET (FP) PO SCH (11:17)
[2022-01-26] MEDS: FERROUS SO4 325 MG TABLET (FP) PO SCH (11:17)
[2022-01-26] MEDS: PRENATAL VITAMINS W/ FOLIC ACID TABLET (FP) PO SCH (11:18)
[2022-01-26] MEDS ORDERED: PNEUMOC 20-VAL CONJ-DIP CRM/PF 0.5 ML SYRINGE IM ONE (12:00)
[2022-01-26] MEDS ORDERED: FLU VACC QS2022-23(6MOS UP)/PF 60 MCG/0.5 ML SYRINGE IM ONE (12:00)
[2022-01-26] MEDS: MELATONIN 5 MG TABLETS PO SCH (22:57)
[2022-01-26] MEDS: THIAMINE HCL 100 MG TABLET (FP) PO SCH (22:58)
[2022-01-26] MEDS: ATORVASTATIN CA 20 MG TABLET (FP) PO SCH (22:58)
[2022-01-26] MEDS: TAMSULOSIN HCL 0.4 MG CAP PO SCH (22:58)
[2022-01-27] MEDS: EMTRICITAB/RILPIVIRI/TENOF ALA (ODEFSEY) TABLET PO SCH (07:26)
[2022-01-27 09:25] VITALS: BP 122/65; PULSE 64; RESP 17; TEMP 97.9
[2022-01-27] MEDS ORDERED: PNEUMOC 20-VAL CONJ-DIP CRM/PF 0.5 ML SYRINGE IM ONE (12:00)
[2022-01-27] MEDS ORDERED: FLU VACC QS2022-23(6MOS UP)/PF 60 MCG/0.5 ML SYRINGE IM ONE (12:00)
== END 2022-01-27 09:50 | disposition home or self-care (01) | DRG 773 ==
LOC: YASAS 12:56 → Y3N 01-22 12:36
PROVIDERS: ADMIT Allergy & Immunology; ATTEND Surgery
PROC: HZ2ZZZZ Detoxification Services for Substance Abuse Treatment (ICD-10-PCS; principal; 2022-01-22)
DX: F11.23 Opioid dependence with withdrawal (principal); F10.230 Alcohol dependence with withdrawal, uncomplicated; F14.20 Cocaine dependence, uncomplicated; F12.20 Cannabis dependence, uncomplicated; F17.210 Nicotine dependence, cigarettes, uncomplicated; F19.24 Other psychoactive substance dependence with psychoactive substance-induced mood disorder; U07.1 COVID-19; Z21 Asymptomatic human immunodeficiency virus [HIV] infection status; D64.9 Anemia, unspecified; G62.9 Polyneuropathy, unspecified; I10 Essential (primary) hypertension; K21.9 Gastro-esophageal reflux disease without esophagitis; J45.909 Unspecified asthma, uncomplicated; N40.0 Benign prostatic hyperplasia without lower urinary tract symptoms; R63.4 Abnormal weight loss; Z68.20 Body mass index [BMI] 20.0-20.9, adult; Z88.2 Allergy status to sulfonamides; Z91.014 Allergy to mammalian meats
CPT/HCPCS: 36415; 80053; 82565; 84520; 85027; 86780; 87811; C9803-CS; Q0162; U0003; U0005

== ENCOUNTER 2022-01-26 09:22 | Emergency (ER) | payer OTHER ==
[2022-01-26] MEDS ORDERED: SODIUM CHLORIDE 1,000 ML IV STA (10:03)
[2022-01-26 10:17] VITALS: RESP 18; TEMP 97.8; BMI 20.9
[2022-01-26 10:57] LABS: BASO % 0.3 % (0-2.0); EOS % 0.9 % (0-4.5); HEMATOCRIT 32.7 % (35.4-49); HEMOGLOBIN 10.6 GM/dL (11.7-16.9); MCH 28.7 pg (25.7-33.7); MCHC 32.6 g/dl (32.0-35.9); MEAN PLT VOLUME 8.1 fl (7.5-11.1); MONO % 9.8 % (3.8-10.2); PLATELET COUNT 203 10^3/uL (134-434); RBC 3.71 M/mm3 (4.00-5.60); RDW 16.3 % (11.9-15.9); WHITE BLOOD COUNT 6.6 K/mm3 (4.0-10.0)
[2022-01-26 11:10] LABS: CHLORIDE 104 mmol/L (98-107); SODIUM 141 mmol/L (136-145)
[2022-01-26 11:12] LABS: CALCIUM 9.4 mg/dL (8.5-10.1)
[2022-01-26 11:13] LABS: ALBUMIN 3.3 g/dl (3.4-5.0); ANION GAP 5 MMOL/L (8-16); BLOOD UREA NITROGEN 25.6 mg/dL (7-18); CO2 32 mmol/L (21-32); GLUCOSE,RANDOM 105 mg/dL (74-106); MAGNESIUM 2.1 mg/dL (1.8-2.4)
[2022-01-26 11:16] LABS: CREATININE 1.5 mg/dL (0.55-1.3); SGOT/AST 31 U/L (15-37); SGPT/ALT 34 U/L (13-61)
[2022-01-26 11:17] LABS: BILIRUBIN,TOTAL < 0.1 mg/dL (0.2-1); TOT PROT 7.7 g/dl (6.4-8.2)
[2022-01-26 11:19] LABS: ALK PHOS 83 U/L (45-117)
[2022-01-26 15:46] VITALS: BP 102/52; PULSE 85
== END 2022-01-26 15:55 ==
LOC: JER 09:22
DX: F11.93 Opioid use, unspecified with withdrawal (principal); R11.0 Nausea
CPT/HCPCS: 36415; 71045-TC-FY; 80053; 83735; 85025; 93005; 93010; 99285-25; C9803-CS; U0003; U0005

== ENCOUNTER 2022-09-21 14:17 | Inpatient (IN) | payer OTHER ==
[2022-09-21 15:47] VITALS: BMI 23.7
[2022-09-21] MEDS ORDERED: BENZOCAINE/MENTHOL (CHLORASEPTIC ) LOZENGE MM PRN (19:35)
[2022-09-21] MEDS ORDERED: BENZONATATE 200 MG CAPSULE PO PRN (19:35)
[2022-09-21] MEDS ORDERED: ONDANSETRON *ODT* 4 MG TABLET SL PRN (19:35)
[2022-09-21] MEDS ORDERED: NICOTINE 10 MG CARTRIDGE (INHALER) IH PRN (19:35)
[2022-09-21] MEDS ORDERED: DICYCLOMINE HCL 10 MG CAPSULE PO PRN (19:35)
[2022-09-21] MEDS ORDERED: IBUPROFEN 600 MG TABLET (FP) PO PRN (19:35)
[2022-09-21] MEDS ORDERED: NALOXONE HCL 0.4 MG/ML VIAL IM PRN (19:35)
[2022-09-21] MEDS ORDERED: METHOCARBAMOL 500 MG TABLET PO PRN (19:35)
[2022-09-21] MEDS ORDERED: POLYETHYLENE GLYCOL (HEALTHYLAX) 3350 17 GM PACKET PO PRN (19:35)
[2022-09-21] MEDS ORDERED: guaiFENesin 600 MG TABLET.ER (FP) PO PRN (19:35)
[2022-09-21] MEDS ORDERED: IBUPROFEN 400 MG TABLET (FP) PO PRN (19:35)
[2022-09-21] MEDS ORDERED: BISMUTH SUBSALICYLATE 524 MG/30 ML PO PRN (19:35)
[2022-09-21] MEDS ORDERED: ACETAMINOPHEN 325 MG TABLET (FP) PO PRN (19:35)
[2022-09-21] MEDS ORDERED: NALOXONE HCL (KLOXXADO) 8 MG SPRAY NS PRN (19:35)
[2022-09-21] MEDS ORDERED: LOPERAMIDE HCL 2 MG CAPSULE PO PRN (19:35)
[2022-09-21] MEDS ORDERED: MAG HYDROX/AL HYDROX/SIMETH 30 ML UNIT-DOSE CUP PO PRN (19:35)
[2022-09-21] MEDS ORDERED: MAGNESIUM HYDROX 2400MG/30ML ORAL SUSPENSION 30 ML CUP PO PRN (19:35)
[2022-09-21] MEDS ORDERED: hydrOXYzine PAMOATE 25 MG CAPSULE (FP) PO PRN (19:35)
[2022-09-21] MEDS: THIAMINE HCL 100 MG TABLET (FP) PO SCH (22:30)
[2022-09-21] MEDS: MELATONIN 5 MG TABLETS PO SCH (22:30)
[2022-09-22] MEDS ORDERED: methaDONE HCL 10 MG TABLET PO SCH (07:45)
[2022-09-22] MEDS: PRENATAL VITAMINS W/ FOLIC ACID TABLET (FP) PO SCH (10:16)
[2022-09-22] MEDS ORDERED: ALBUTEROL SO4 HFA INHALER IH PRN (10:54)
[2022-09-22] MEDS ORDERED: FAMOTIDINE 20 MG TABLET PO SCH ×2 (11:00→16:00)
[2022-09-22] MEDS ORDERED: PANTOPRAZOLE 20 MG TABLET PO SCH (11:00)
[2022-09-22] MEDS ORDERED: EMTRICITAB/RILPIVIRI/TENOF ALA (ODEFSEY) TABLET PO SCH ×2 (11:00→11:25)
[2022-09-22] MEDS: DOCUSATE SODIUM 100 MG CAPSULE (FP) PO SCH ×2 (11:45→22:16)
[2022-09-22] MEDS: ATORVASTATIN CA 10 MG TABLET (FP) PO SCH (11:45)
[2022-09-22] MEDS: amLODIPine BESYLATE 10 MG TABLET (FP) PO SCH (11:45)
[2022-09-22] MEDS: FERROUS SO4 325 MG TABLET (FP) PO SCH (11:45)
[2022-09-22 12:19] LABS: HEMATOCRIT 32.2 % (35.4-49); HEMOGLOBIN 10.2 GM/dL (11.7-16.9); MCH 29.8 pg (25.7-33.7); MCHC 31.8 g/dl (32.0-35.9); MEAN CELL VOLUME 93.7 fl (80-96); MEAN PLT VOLUME 8.8 fl (7.5-11.1); PLATELET COUNT 224 10^3/uL (134-434); RBC 3.43 M/mm3 (4.00-5.60); RDW 14.2 % (11.9-15.9); WHITE BLOOD COUNT 3.8 K/mm3 (4.0-10.0)
[2022-09-22 12:25] LABS: POTASSIUM 4.9 mmol/L (3.5-5.1)
[2022-09-22 12:29] LABS: ALBUMIN 3.3 g/dl (3.4-5.0); BLOOD UREA NITROGEN 25.6 mg/dL (7-18)
[2022-09-22 12:33] LABS: BILIRUBIN,TOTAL 0.3 mg/dL (0.2-1); CREATININE 1.7 mg/dL (0.55-1.3)
[2022-09-22 12:34] LABS: TOT PROT 7.2 g/dl (6.4-8.2)
[2022-09-22] MEDS: PATIENT'S OWN MEDICATION (NON-FORMULARY) (Sofosbuvir/Velpatasvir [Sofosbuvir-Velpatasvir 4 PO SCH (12:44)
[2022-09-22] MEDS: EMTRICITAB/RILPIVIRI/TENOF ALA (ODEFSEY) TABLET PO SCH (12:44)
[2022-09-22] MEDS ORDERED: TAMSULOSIN HCL 0.4 MG CAP PO SCH (22:00)
[2022-09-22] MEDS: MELATONIN 5 MG TABLETS PO SCH (22:16)
[2022-09-22] MEDS: THIAMINE HCL 100 MG TABLET (FP) PO SCH (22:17)
[2022-09-23 06:23] VITALS: RESP 16
[2022-09-23] MEDS: FAMOTIDINE 20 MG TABLET PO SCH ×2 (07:24→10:25)
[2022-09-23] MEDS: EMTRICITAB/RILPIVIRI/TENOF ALA (ODEFSEY) TABLET PO SCH (07:27)
[2022-09-23] MEDS ORDERED: EMTRICITAB/RILPIVIRI/TENOF ALA (ODEFSEY) TABLET PO SCH (08:00)
[2022-09-23 09:50] VITALS: BP 103/64; PULSE 61; TEMP 97.9
[2022-09-23] MEDS: ATORVASTATIN CA 10 MG TABLET (FP) PO SCH (10:24)
[2022-09-23] MEDS: PATIENT'S OWN MEDICATION (NON-FORMULARY) (Sofosbuvir/Velpatasvir [Sofosbuvir-Velpatasvir 4 PO SCH (10:24)
[2022-09-23] MEDS: FERROUS SO4 325 MG TABLET (FP) PO SCH (10:25)
[2022-09-23] MEDS: amLODIPine BESYLATE 10 MG TABLET (FP) PO SCH (10:25)
[2022-09-23] MEDS: PRENATAL VITAMINS W/ FOLIC ACID TABLET (FP) PO SCH (10:25)
[2022-09-23] MEDS: DOCUSATE SODIUM 100 MG CAPSULE (FP) PO SCH (10:25)
== END 2022-09-23 11:34 | disposition other institution (70) | DRG 773 ==
LOC: YASAS 14:17 → Y3N 20:16
PROVIDERS: ADMIT Allergy & Immunology; ATTEND Surgery
PROC: HZ2ZZZZ Detoxification Services for Substance Abuse Treatment (ICD-10-PCS; principal; 2022-09-21)
DX: F10.20 Alcohol dependence, uncomplicated (principal); F11.20 Opioid dependence, uncomplicated; F14.20 Cocaine dependence, uncomplicated; F17.210 Nicotine dependence, cigarettes, uncomplicated; Z21 Asymptomatic human immunodeficiency virus [HIV] infection status; G62.9 Polyneuropathy, unspecified; E78.5 Hyperlipidemia, unspecified; I12.9 Hypertensive chronic kidney disease with stage 1 through stage 4 chronic kidney disease, or unspecified chronic kidney disease; N18.9 Chronic kidney disease, unspecified; Z86.11 Personal history of tuberculosis; R63.4 Abnormal weight loss; Z68.23 Body mass index [BMI] 23.0-23.9, adult; Z88.2 Allergy status to sulfonamides
CPT/HCPCS: 36415; 80053; 85027; 86780; 87635; 87811

== ENCOUNTER 2022-09-23 11:42 | Inpatient (IN) | payer OTHER ==
[2022-09-23] MEDS ORDERED: NICOTINE 14 MG/24 HOURS TOPICAL PATCH TD PRN (13:35)
[2022-09-23] MEDS ORDERED: NALOXONE HCL 0.4 MG/ML VIAL IVPUSH PRN (13:35)
[2022-09-23] MEDS ORDERED: IBUPROFEN 400 MG TABLET (FP) PO PRN (13:35)
[2022-09-23] MEDS ORDERED: ACETAMINOPHEN 325 MG TABLET (FP) PO PRN (13:35)
[2022-09-23] MEDS ORDERED: NALOXONE HCL (KLOXXADO) 8 MG SPRAY NS PRN (13:35)
[2022-09-23] MEDS ORDERED: MAGNESIUM HYDROX 2400MG/30ML ORAL SUSPENSION 30 ML CUP PO PRN (13:35)
[2022-09-23] MEDS ORDERED: BENZOCAINE/MENTHOL (CHLORASEPTIC ) LOZENGE MM PRN (13:35)
[2022-09-23] MEDS ORDERED: NICOTINE 10 MG CARTRIDGE (INHALER) IH PRN (13:35)
[2022-09-23] MEDS ORDERED: BENZONATATE 200 MG CAPSULE PO PRN (13:35)
[2022-09-23] MEDS ORDERED: AMMONIUM LACTATE 12% LOTION 225 GM BOTTLE TP PRN (13:35)
[2022-09-23] MEDS ORDERED: COLLOIDAL OATMEAL 1 BAR EACH TP PRN (13:35)
[2022-09-23] MEDS ORDERED: guaiFENesin 600 MG TABLET.ER (FP) PO PRN (13:35)
[2022-09-23] MEDS ORDERED: hydrOXYzine PAMOATE 25 MG CAPSULE (FP) PO PRN (13:35)
[2022-09-23] MEDS ORDERED: BACLOFEN 10 MG TABLET (FP) PO PRN (13:35)
[2022-09-23] MEDS ORDERED: IBUPROFEN 600 MG TABLET (FP) PO PRN (13:35)
[2022-09-23] MEDS ORDERED: LOPERAMIDE HCL 2 MG CAPSULE PO PRN (13:35)
[2022-09-23] MEDS ORDERED: NICOTINE POLACRILEX 4 MG GUM BUC PRN (13:35)
[2022-09-23] MEDS: MAG HYDROX/AL HYDROX/SIMETH 30 ML UNIT-DOSE CUP PO PRN (14:10)
[2022-09-23] MEDS ORDERED: FAMOTIDINE 20 MG TABLET PO SCH ×2 (21:00→22:00)
[2022-09-23] MEDS: MELATONIN 5 MG TABLETS PO SCH (21:11)
[2022-09-23] MEDS: THIAMINE HCL 100 MG TABLET (FP) PO SCH (21:11)
[2022-09-23] MEDS: ATORVASTATIN CA 10 MG TABLET (FP) PO SCH (21:12)
[2022-09-23] MEDS: DOCUSATE SODIUM 100 MG CAPSULE (FP) PO SCH (21:12)
[2022-09-23] MEDS: TAMSULOSIN HCL 0.4 MG CAP PO SCH (21:12)
[2022-09-23] MEDS: traZODone HCL 50 MG TABLET (FP) PO SCH (21:12)
[2022-09-23] MEDS: SENNOSIDES 8.6MG TABLET (FP) PO SCH (21:12)
[2022-09-23] MEDS: FAMOTIDINE 20 MG TABLET PO SCH (21:48)
[2022-09-24] MEDS ORDERED: PANTOPRAZOLE 20 MG TABLET PO SCH (06:00)
[2022-09-24] MEDS ORDERED: methaDONE HCL 40 MG DISPERSABLE TABLET PO SCH (06:00)
[2022-09-24] MEDS ORDERED: FAMOTIDINE 20 MG TABLET PO SCH (06:00)
[2022-09-24] MEDS: FAMOTIDINE 20 MG TABLET PO SCH ×2 (06:20→21:12)
[2022-09-24] MEDS ORDERED: EMTRICITAB/RILPIVIRI/TENOF ALA (ODEFSEY) TABLET PO SCH (08:00)
[2022-09-24] MEDS: PRENATAL VITAMINS W/ FOLIC ACID TABLET (FP) PO SCH (10:01)
[2022-09-24] MEDS: DOCUSATE SODIUM 100 MG CAPSULE (FP) PO SCH ×2 (10:01→21:12)
[2022-09-24] MEDS: FERROUS SO4 325 MG TABLET (FP) PO SCH (10:02)
[2022-09-24] MEDS: amLODIPine BESYLATE 10 MG TABLET (FP) PO SCH (10:02)
[2022-09-24] MEDS: PATIENT'S OWN MEDICATION (NON-FORMULARY) (Sofosbuvir/Velpatasvir [Sofosbuvir-Velpatasvir 4 PO SCH (10:29)
[2022-09-24] MEDS: [UNRECOGNIZED DRUG - OTHER] PO SCH (16:48)
[2022-09-24] MEDS: THIAMINE HCL 100 MG TABLET (FP) PO SCH (21:11)
[2022-09-24] MEDS: ATORVASTATIN CA 10 MG TABLET (FP) PO SCH (21:12)
[2022-09-24] MEDS: TAMSULOSIN HCL 0.4 MG CAP PO SCH (21:12)
[2022-09-24] MEDS: MELATONIN 5 MG TABLETS PO SCH (21:12)
[2022-09-24] MEDS: traZODone HCL 50 MG TABLET (FP) PO SCH (21:13)
[2022-09-24] MEDS: CLOTRIMAZOLE 1% CREAM TP SCH (21:14)
[2022-09-24] MEDS: SENNOSIDES 8.6MG TABLET (FP) PO SCH (22:10)
[2022-09-25] MEDS: FAMOTIDINE 20 MG TABLET PO SCH ×2 (06:26→21:06)
[2022-09-25] MEDS: POLYETHYLENE GLYCOL (HEALTHYLAX) 3350 17 GM PACKET PO PRN (07:42)
[2022-09-25] MEDS: CLOTRIMAZOLE 1% CREAM TP SCH ×2 (10:02→21:06)
[2022-09-25] MEDS: FERROUS SO4 325 MG TABLET (FP) PO SCH (10:02)
[2022-09-25] MEDS: DOCUSATE SODIUM 100 MG CAPSULE (FP) PO SCH ×2 (10:02→21:05)
[2022-09-25] MEDS: PATIENT'S OWN MEDICATION (NON-FORMULARY) (Sofosbuvir/Velpatasvir [Sofosbuvir-Velpatasvir 4 PO SCH (10:03)
[2022-09-25] MEDS: amLODIPine BESYLATE 10 MG TABLET (FP) PO SCH (10:03)
[2022-09-25] MEDS: PRENATAL VITAMINS W/ FOLIC ACID TABLET (FP) PO SCH (10:03)
[2022-09-25] MEDS: [UNRECOGNIZED DRUG - OTHER] PO SCH (17:40)
[2022-09-25] MEDS: THIAMINE HCL 100 MG TABLET (FP) PO SCH (21:05)
[2022-09-25] MEDS: MELATONIN 5 MG TABLETS PO SCH (21:05)
[2022-09-25] MEDS: traZODone HCL 50 MG TABLET (FP) PO SCH (21:05)
[2022-09-25] MEDS: TAMSULOSIN HCL 0.4 MG CAP PO SCH (21:05)
[2022-09-25] MEDS: SENNOSIDES 8.6MG TABLET (FP) PO SCH (21:05)
[2022-09-25] MEDS: ATORVASTATIN CA 10 MG TABLET (FP) PO SCH (21:05)
[2022-09-26] MEDS: FAMOTIDINE 20 MG TABLET PO SCH ×2 (06:15→21:17)
[2022-09-26] MEDS: POLYETHYLENE GLYCOL (HEALTHYLAX) 3350 17 GM PACKET PO PRN (07:49)
[2022-09-26] MEDS: MAG HYDROX/AL HYDROX/SIMETH 30 ML UNIT-DOSE CUP PO PRN (09:12)
[2022-09-26] MEDS: DOCUSATE SODIUM 100 MG CAPSULE (FP) PO SCH ×2 (09:47→21:16)
[2022-09-26] MEDS: CLOTRIMAZOLE 1% CREAM TP SCH ×2 (09:48→21:18)
[2022-09-26] MEDS: PRENATAL VITAMINS W/ FOLIC ACID TABLET (FP) PO SCH (09:48)
[2022-09-26] MEDS: amLODIPine BESYLATE 10 MG TABLET (FP) PO SCH (09:48)
[2022-09-26] MEDS: FERROUS SO4 325 MG TABLET (FP) PO SCH (09:48)
[2022-09-26] MEDS: PATIENT'S OWN MEDICATION (NON-FORMULARY) (Sofosbuvir/Velpatasvir [Sofosbuvir-Velpatasvir 4 PO SCH (09:49)
[2022-09-26] MEDS: ONDANSETRON 4 MG TABLET PO PRN (12:30)
[2022-09-26] MEDS: [UNRECOGNIZED DRUG - OTHER] PO SCH (17:25)
[2022-09-26] MEDS: MELATONIN 5 MG TABLETS PO SCH (21:16)
[2022-09-26] MEDS: THIAMINE HCL 100 MG TABLET (FP) PO SCH (21:16)
[2022-09-26] MEDS: TAMSULOSIN HCL 0.4 MG CAP PO SCH (21:17)
[2022-09-26] MEDS: ATORVASTATIN CA 10 MG TABLET (FP) PO SCH (21:17)
[2022-09-26] MEDS: traZODone HCL 50 MG TABLET (FP) PO SCH (21:17)
[2022-09-26] MEDS: SENNOSIDES 8.6MG TABLET (FP) PO SCH (21:18)
[2022-09-27] MEDS: FAMOTIDINE 20 MG TABLET PO SCH ×2 (06:58→21:18)
[2022-09-27] MEDS: POLYETHYLENE GLYCOL (HEALTHYLAX) 3350 17 GM PACKET PO PRN ×2 (07:51→21:19)
[2022-09-27] MEDS: DOCUSATE SODIUM 100 MG CAPSULE (FP) PO SCH ×2 (09:25→21:18)
[2022-09-27] MEDS: CLOTRIMAZOLE 1% CREAM TP SCH ×2 (09:26→21:18)
[2022-09-27] MEDS: PATIENT'S OWN MEDICATION (NON-FORMULARY) (Sofosbuvir/Velpatasvir [Sofosbuvir-Velpatasvir 4 PO SCH (09:26)
[2022-09-27] MEDS: FERROUS SO4 325 MG TABLET (FP) PO SCH (09:26)
[2022-09-27] MEDS: PRENATAL VITAMINS W/ FOLIC ACID TABLET (FP) PO SCH (09:26)
[2022-09-27] MEDS: amLODIPine BESYLATE 10 MG TABLET (FP) PO SCH (10:40)
[2022-09-27] MEDS: [UNRECOGNIZED DRUG - OTHER] PO SCH (17:09)
[2022-09-27] MEDS: MELATONIN 5 MG TABLETS PO SCH (21:17)
[2022-09-27] MEDS: THIAMINE HCL 100 MG TABLET (FP) PO SCH (21:17)
[2022-09-27] MEDS: SENNOSIDES 8.6MG TABLET (FP) PO SCH (21:17)
[2022-09-27] MEDS: traZODone HCL 50 MG TABLET (FP) PO SCH (21:18)
[2022-09-27] MEDS: ATORVASTATIN CA 10 MG TABLET (FP) PO SCH (21:18)
[2022-09-27] MEDS: TAMSULOSIN HCL 0.4 MG CAP PO SCH (21:18)
[2022-09-27] MEDS: MAG HYDROX/AL HYDROX/SIMETH 30 ML UNIT-DOSE CUP PO PRN (23:31)
[2022-09-28] MEDS: FAMOTIDINE 20 MG TABLET PO SCH ×2 (06:15→21:18)
[2022-09-28] MEDS: POLYETHYLENE GLYCOL (HEALTHYLAX) 3350 17 GM PACKET PO PRN ×2 (06:17→21:20)
[2022-09-28] MEDS: PRENATAL VITAMINS W/ FOLIC ACID TABLET (FP) PO SCH (09:44)
[2022-09-28] MEDS: CLOTRIMAZOLE 1% CREAM TP SCH ×2 (09:44→21:19)
[2022-09-28] MEDS: DOCUSATE SODIUM 100 MG CAPSULE (FP) PO SCH ×2 (09:45→21:18)
[2022-09-28] MEDS: FERROUS SO4 325 MG TABLET (FP) PO SCH (09:45)
[2022-09-28] MEDS: amLODIPine BESYLATE 10 MG TABLET (FP) PO SCH (09:45)
[2022-09-28] MEDS: PATIENT'S OWN MEDICATION (NON-FORMULARY) (Sofosbuvir/Velpatasvir [Sofosbuvir-Velpatasvir 4 PO SCH (09:46)
[2022-09-28] MEDS ORDERED: LACTULOSE 20 GM/30 ML UDC (FOR ORAL USE ONLY) PO ONE (09:59)
[2022-09-28] MEDS: ONDANSETRON 4 MG TABLET PO PRN (13:43)
[2022-09-28] MEDS: LACTULOSE 20 GM/30 ML UDC (FOR ORAL USE ONLY) PO SCH ×2 (13:43→21:17)
[2022-09-28] MEDS: [UNRECOGNIZED DRUG - OTHER] PO SCH (17:15)
[2022-09-28] MEDS: MELATONIN 5 MG TABLETS PO SCH (21:17)
[2022-09-28] MEDS: THIAMINE HCL 100 MG TABLET (FP) PO SCH (21:17)
[2022-09-28] MEDS: TAMSULOSIN HCL 0.4 MG CAP PO SCH (21:18)
[2022-09-28] MEDS: traZODone HCL 50 MG TABLET (FP) PO SCH (21:18)
[2022-09-28] MEDS: ATORVASTATIN CA 10 MG TABLET (FP) PO SCH (21:18)
[2022-09-28] MEDS: SENNOSIDES 8.6MG TABLET (FP) PO SCH (21:19)
[2022-09-28] MEDS ORDERED: DOCUSATE SODIUM 100 MG CAPSULE (FP) PO PRN (22:00)
[2022-09-29] MEDS: FAMOTIDINE 20 MG TABLET PO SCH ×2 (06:10→21:39)
[2022-09-29] MEDS: POLYETHYLENE GLYCOL (HEALTHYLAX) 3350 17 GM PACKET PO PRN ×2 (06:11→22:07)
[2022-09-29] MEDS: LACTULOSE 20 GM/30 ML UDC (FOR ORAL USE ONLY) PO SCH (06:37)
[2022-09-29] MEDS ORDERED: LACTULOSE 20 GM/30 ML UDC (FOR ORAL USE ONLY) PO PRN (08:21)
[2022-09-29] MEDS: FERROUS SO4 325 MG TABLET (FP) PO SCH (10:18)
[2022-09-29] MEDS: amLODIPine BESYLATE 10 MG TABLET (FP) PO SCH (10:18)
[2022-09-29] MEDS: DOCUSATE SODIUM 100 MG CAPSULE (FP) PO SCH ×2 (10:18→21:39)
[2022-09-29] MEDS: PRENATAL VITAMINS W/ FOLIC ACID TABLET (FP) PO SCH (10:18)
[2022-09-29] MEDS: PATIENT'S OWN MEDICATION (NON-FORMULARY) (Sofosbuvir/Velpatasvir [Sofosbuvir-Velpatasvir 4 PO SCH (10:19)
[2022-09-29] MEDS: CLOTRIMAZOLE 1% CREAM TP SCH ×2 (10:21→22:41)
[2022-09-29] MEDS: ONDANSETRON 4 MG TABLET PO PRN (10:48)
[2022-09-29] MEDS: [UNRECOGNIZED DRUG - OTHER] PO SCH (17:10)
[2022-09-29] MEDS: traZODone HCL 50 MG TABLET (FP) PO SCH (21:38)
[2022-09-29] MEDS: THIAMINE HCL 100 MG TABLET (FP) PO SCH (21:39)
[2022-09-29] MEDS: ATORVASTATIN CA 10 MG TABLET (FP) PO SCH (21:39)
[2022-09-29] MEDS: TAMSULOSIN HCL 0.4 MG CAP PO SCH (21:39)
[2022-09-29] MEDS: SENNOSIDES 8.6MG TABLET (FP) PO SCH (21:39)
[2022-09-29] MEDS: MELATONIN 5 MG TABLETS PO SCH (21:39)
[2022-09-30] MEDS: FAMOTIDINE 20 MG TABLET PO SCH ×2 (06:15→21:22)
[2022-09-30] MEDS: POLYETHYLENE GLYCOL (HEALTHYLAX) 3350 17 GM PACKET PO PRN ×2 (06:15→21:22)
[2022-09-30] MEDS: ONDANSETRON *ODT* 4 MG TABLET SL PRN (07:20)
[2022-09-30] MEDS: DOCUSATE SODIUM 100 MG CAPSULE (FP) PO SCH ×2 (09:08→21:22)
[2022-09-30] MEDS: amLODIPine BESYLATE 10 MG TABLET (FP) PO SCH (09:08)
[2022-09-30] MEDS: CLOTRIMAZOLE 1% CREAM TP SCH ×2 (09:08→21:23)
[2022-09-30] MEDS: MAG HYDROX/AL HYDROX/SIMETH 30 ML UNIT-DOSE CUP PO PRN (09:08)
[2022-09-30] MEDS: FERROUS SO4 325 MG TABLET (FP) PO SCH (09:08)
[2022-09-30] MEDS: PRENATAL VITAMINS W/ FOLIC ACID TABLET (FP) PO SCH (09:08)
[2022-09-30] MEDS: PATIENT'S OWN MEDICATION (NON-FORMULARY) (Sofosbuvir/Velpatasvir [Sofosbuvir-Velpatasvir 4 PO SCH (09:11)
[2022-09-30] MEDS: [UNRECOGNIZED DRUG - OTHER] PO SCH (17:41)
[2022-09-30] MEDS: MELATONIN 5 MG TABLETS PO SCH (21:21)
[2022-09-30] MEDS: THIAMINE HCL 100 MG TABLET (FP) PO SCH (21:21)
[2022-09-30] MEDS: traZODone HCL 50 MG TABLET (FP) PO SCH (21:22)
[2022-09-30] MEDS: SENNOSIDES 8.6MG TABLET (FP) PO SCH (21:22)
[2022-09-30] MEDS: TAMSULOSIN HCL 0.4 MG CAP PO SCH (21:22)
[2022-09-30] MEDS: ATORVASTATIN CA 10 MG TABLET (FP) PO SCH (21:22)
[2022-10-01] MEDS: FAMOTIDINE 20 MG TABLET PO SCH ×2 (07:03→21:15)
[2022-10-01] MEDS: POLYETHYLENE GLYCOL (HEALTHYLAX) 3350 17 GM PACKET PO PRN ×2 (07:52→21:14)
[2022-10-01] MEDS: ONDANSETRON *ODT* 4 MG TABLET SL PRN (07:59)
[2022-10-01] MEDS: FERROUS SO4 325 MG TABLET (FP) PO SCH (09:47)
[2022-10-01] MEDS: DOCUSATE SODIUM 100 MG CAPSULE (FP) PO SCH ×2 (09:47→21:14)
[2022-10-01] MEDS: PRENATAL VITAMINS W/ FOLIC ACID TABLET (FP) PO SCH (09:48)
[2022-10-01] MEDS: CLOTRIMAZOLE 1% CREAM TP SCH ×2 (09:48→21:15)
[2022-10-01] MEDS: amLODIPine BESYLATE 10 MG TABLET (FP) PO SCH (09:48)
[2022-10-01] MEDS: PATIENT'S OWN MEDICATION (NON-FORMULARY) (Sofosbuvir/Velpatasvir [Sofosbuvir-Velpatasvir 4 PO SCH (09:50)
[2022-10-01] MEDS: [UNRECOGNIZED DRUG - OTHER] PO SCH (17:26)
[2022-10-01] MEDS: traZODone HCL 50 MG TABLET (FP) PO SCH (21:14)
[2022-10-01] MEDS: SENNOSIDES 8.6MG TABLET (FP) PO SCH (21:14)
[2022-10-01] MEDS: ATORVASTATIN CA 10 MG TABLET (FP) PO SCH (21:14)
[2022-10-01] MEDS: THIAMINE HCL 100 MG TABLET (FP) PO SCH (21:14)
[2022-10-01] MEDS: TAMSULOSIN HCL 0.4 MG CAP PO SCH (21:14)
[2022-10-01] MEDS: MELATONIN 5 MG TABLETS PO SCH (21:14)
[2022-10-02] MEDS: FAMOTIDINE 20 MG TABLET PO SCH ×2 (06:11→21:22)
[2022-10-02] MEDS: POLYETHYLENE GLYCOL (HEALTHYLAX) 3350 17 GM PACKET PO PRN (07:59)
[2022-10-02] MEDS: ONDANSETRON *ODT* 4 MG TABLET SL PRN (08:45)
[2022-10-02] MEDS: FERROUS SO4 325 MG TABLET (FP) PO SCH (09:49)
[2022-10-02] MEDS: PATIENT'S OWN MEDICATION (NON-FORMULARY) (Sofosbuvir/Velpatasvir [Sofosbuvir-Velpatasvir 4 PO SCH (09:50)
[2022-10-02] MEDS: DOCUSATE SODIUM 100 MG CAPSULE (FP) PO SCH ×2 (09:50→21:22)
[2022-10-02] MEDS: CLOTRIMAZOLE 1% CREAM TP SCH ×2 (09:51→21:24)
[2022-10-02] MEDS: amLODIPine BESYLATE 10 MG TABLET (FP) PO SCH (09:51)
[2022-10-02] MEDS: PRENATAL VITAMINS W/ FOLIC ACID TABLET (FP) PO SCH (09:51)
[2022-10-02] MEDS: [UNRECOGNIZED DRUG - OTHER] PO SCH (17:20)
[2022-10-02] MEDS: TAMSULOSIN HCL 0.4 MG CAP PO SCH (21:22)
[2022-10-02] MEDS: ATORVASTATIN CA 10 MG TABLET (FP) PO SCH (21:22)
[2022-10-02] MEDS: MELATONIN 5 MG TABLETS PO SCH (21:22)
[2022-10-02] MEDS: THIAMINE HCL 100 MG TABLET (FP) PO SCH (21:22)
[2022-10-02] MEDS: traZODone HCL 50 MG TABLET (FP) PO SCH (21:22)
[2022-10-02] MEDS: SENNOSIDES 8.6MG TABLET (FP) PO SCH (21:22)
[2022-10-03] MEDS: POLYETHYLENE GLYCOL (HEALTHYLAX) 3350 17 GM PACKET PO PRN ×2 (06:33→21:18)
[2022-10-03] MEDS: FAMOTIDINE 20 MG TABLET PO SCH ×2 (06:33→20:09)
[2022-10-03] MEDS: ONDANSETRON *ODT* 4 MG TABLET SL PRN ×2 (06:39→15:54)
[2022-10-03] MEDS: DOCUSATE SODIUM 100 MG CAPSULE (FP) PO SCH ×2 (09:25→21:19)
[2022-10-03] MEDS: CLOTRIMAZOLE 1% CREAM TP SCH ×2 (09:26→21:20)
[2022-10-03] MEDS: FERROUS SO4 325 MG TABLET (FP) PO SCH (09:26)
[2022-10-03] MEDS: PRENATAL VITAMINS W/ FOLIC ACID TABLET (FP) PO SCH (09:27)
[2022-10-03] MEDS: amLODIPine BESYLATE 10 MG TABLET (FP) PO SCH (09:28)
[2022-10-03] MEDS: PATIENT'S OWN MEDICATION (NON-FORMULARY) (Sofosbuvir/Velpatasvir [Sofosbuvir-Velpatasvir 4 PO SCH (09:29)
[2022-10-03] MEDS: PANTOPRAZOLE 40 MG TABLET PO SCH (12:12)
[2022-10-03] MEDS: [UNRECOGNIZED DRUG - OTHER] PO SCH (16:43)
[2022-10-03] MEDS: ATORVASTATIN CA 10 MG TABLET (FP) PO SCH (21:18)
[2022-10-03] MEDS: MELATONIN 5 MG TABLETS PO SCH (21:18)
[2022-10-03] MEDS: THIAMINE HCL 100 MG TABLET (FP) PO SCH (21:18)
[2022-10-03] MEDS: traZODone HCL 50 MG TABLET (FP) PO SCH (21:18)
[2022-10-03] MEDS: SENNOSIDES 8.6MG TABLET (FP) PO SCH (21:19)
[2022-10-03] MEDS: TAMSULOSIN HCL 0.4 MG CAP PO SCH (21:19)
[2022-10-04] MEDS: FAMOTIDINE 20 MG TABLET PO SCH ×2 (06:06→21:19)
[2022-10-04] MEDS: POLYETHYLENE GLYCOL (HEALTHYLAX) 3350 17 GM PACKET PO PRN ×2 (06:06→21:19)
[2022-10-04] MEDS: ONDANSETRON *ODT* 4 MG TABLET SL PRN (06:06)
[2022-10-04] MEDS: PANTOPRAZOLE 40 MG TABLET PO SCH (09:40)
[2022-10-04] MEDS: amLODIPine BESYLATE 10 MG TABLET (FP) PO SCH (09:40)
[2022-10-04] MEDS: PATIENT'S OWN MEDICATION (NON-FORMULARY) (Sofosbuvir/Velpatasvir [Sofosbuvir-Velpatasvir 4 PO SCH (09:40)
[2022-10-04] MEDS: DOCUSATE SODIUM 100 MG CAPSULE (FP) PO SCH ×2 (09:40→21:20)
[2022-10-04] MEDS: FERROUS SO4 325 MG TABLET (FP) PO SCH (09:40)
[2022-10-04] MEDS: PRENATAL VITAMINS W/ FOLIC ACID TABLET (FP) PO SCH (09:41)
[2022-10-04] MEDS: CLOTRIMAZOLE 1% CREAM TP SCH ×2 (09:41→21:20)
[2022-10-04] MEDS: [UNRECOGNIZED DRUG - OTHER] PO SCH (17:48)
[2022-10-04] MEDS: traZODone HCL 50 MG TABLET (FP) PO SCH (21:19)
[2022-10-04] MEDS: TAMSULOSIN HCL 0.4 MG CAP PO SCH (21:19)
[2022-10-04] MEDS: ATORVASTATIN CA 10 MG TABLET (FP) PO SCH (21:20)
[2022-10-04] MEDS: MELATONIN 5 MG TABLETS PO SCH (21:20)
[2022-10-04] MEDS: SENNOSIDES 8.6MG TABLET (FP) PO SCH (21:20)
[2022-10-04] MEDS: THIAMINE HCL 100 MG TABLET (FP) PO SCH (21:21)
[2022-10-05] MEDS: FAMOTIDINE 20 MG TABLET PO SCH ×2 (06:48→21:12)
[2022-10-05] MEDS: ONDANSETRON *ODT* 4 MG TABLET SL PRN (06:51)
[2022-10-05] MEDS: POLYETHYLENE GLYCOL (HEALTHYLAX) 3350 17 GM PACKET PO PRN ×2 (07:48→21:12)
[2022-10-05] MEDS: CLOTRIMAZOLE 1% CREAM TP SCH ×2 (10:09→21:14)
[2022-10-05] MEDS: DOCUSATE SODIUM 100 MG CAPSULE (FP) PO SCH ×2 (10:09→21:13)
[2022-10-05] MEDS: FERROUS SO4 325 MG TABLET (FP) PO SCH (10:09)
[2022-10-05] MEDS: PANTOPRAZOLE 40 MG TABLET PO SCH (10:09)
[2022-10-05] MEDS: PRENATAL VITAMINS W/ FOLIC ACID TABLET (FP) PO SCH (10:10)
[2022-10-05] MEDS: amLODIPine BESYLATE 10 MG TABLET (FP) PO SCH (10:10)
[2022-10-05] MEDS: LACTULOSE 20 GM/30 ML UDC (FOR ORAL USE ONLY) PO SCH ×2 (15:29→21:14)
[2022-10-05] MEDS: [UNRECOGNIZED DRUG - OTHER] PO SCH (17:14)
[2022-10-05] MEDS: THIAMINE HCL 100 MG TABLET (FP) PO SCH (21:12)
[2022-10-05] MEDS: MELATONIN 5 MG TABLETS PO SCH (21:12)
[2022-10-05] MEDS: traZODone HCL 50 MG TABLET (FP) PO SCH (21:13)
[2022-10-05] MEDS: SENNOSIDES 8.6MG TABLET (FP) PO SCH (21:13)
[2022-10-05] MEDS: TAMSULOSIN HCL 0.4 MG CAP PO SCH (21:13)
[2022-10-05] MEDS: ATORVASTATIN CA 10 MG TABLET (FP) PO SCH (21:13)
[2022-10-06] MEDS: FAMOTIDINE 20 MG TABLET PO SCH ×2 (05:54→21:02)
[2022-10-06] MEDS: LACTULOSE 20 GM/30 ML UDC (FOR ORAL USE ONLY) PO SCH ×3 (05:54→21:36)
[2022-10-06] MEDS: ONDANSETRON *ODT* 4 MG TABLET SL PRN (07:40)
[2022-10-06] MEDS: FERROUS SO4 325 MG TABLET (FP) PO SCH (09:10)
[2022-10-06] MEDS: DOCUSATE SODIUM 100 MG CAPSULE (FP) PO SCH ×2 (09:10→21:39)
[2022-10-06] MEDS: PRENATAL VITAMINS W/ FOLIC ACID TABLET (FP) PO SCH (09:11)
[2022-10-06] MEDS: CLOTRIMAZOLE 1% CREAM TP SCH ×2 (09:11→21:38)
[2022-10-06] MEDS: PANTOPRAZOLE 40 MG TABLET PO SCH (09:11)
[2022-10-06] MEDS: amLODIPine BESYLATE 10 MG TABLET (FP) PO SCH (09:15)
[2022-10-06] MEDS: [UNRECOGNIZED DRUG - OTHER] PO SCH (17:17)
[2022-10-06] MEDS: TAMSULOSIN HCL 0.4 MG CAP PO SCH (21:38)
[2022-10-06] MEDS: traZODone HCL 50 MG TABLET (FP) PO SCH (21:38)
[2022-10-06] MEDS: THIAMINE HCL 100 MG TABLET (FP) PO SCH (21:38)
[2022-10-06] MEDS: SENNOSIDES 8.6MG TABLET (FP) PO SCH (21:38)
[2022-10-06] MEDS: ATORVASTATIN CA 10 MG TABLET (FP) PO SCH (21:38)
[2022-10-06] MEDS: MELATONIN 5 MG TABLETS PO SCH (21:38)
[2022-10-07] MEDS: LACTULOSE 20 GM/30 ML UDC (FOR ORAL USE ONLY) PO SCH (06:25)
[2022-10-07] MEDS: FAMOTIDINE 20 MG TABLET PO SCH (06:25)
[2022-10-07] MEDS: POLYETHYLENE GLYCOL (HEALTHYLAX) 3350 17 GM PACKET PO PRN (06:37)
[2022-10-07 06:44] VITALS: RESP 16; TEMP 98
[2022-10-07 09:06] VITALS: BP 114/70; PULSE 102
[2022-10-07] MEDS: amLODIPine BESYLATE 10 MG TABLET (FP) PO SCH (09:10)
[2022-10-07] MEDS: PRENATAL VITAMINS W/ FOLIC ACID TABLET (FP) PO SCH (09:10)
[2022-10-07] MEDS: FERROUS SO4 325 MG TABLET (FP) PO SCH (09:10)
[2022-10-07] MEDS: DOCUSATE SODIUM 100 MG CAPSULE (FP) PO SCH (09:10)
[2022-10-07] MEDS: PANTOPRAZOLE 40 MG TABLET PO SCH (09:10)
[2022-10-07] MEDS: CLOTRIMAZOLE 1% CREAM TP SCH (09:11)
[2022-10-07] MEDS: ONDANSETRON *ODT* 4 MG TABLET SL PRN (09:30)
== END 2022-10-07 09:37 | disposition home or self-care (01) | DRG 772 ==
LOC: YASAS 11:42 → Y3E 11:45
PROVIDERS: ADMIT Allergy & Immunology; ATTEND Psychiatry & Neurology Pain Medicine
PROC: HZ42ZZZ Group Counseling for Substance Abuse Treatment, Cognitive-Behavioral (ICD-10-PCS; principal; 2022-09-23)
DX: F11.20 Opioid dependence, uncomplicated (principal); F10.20 Alcohol dependence, uncomplicated; F14.20 Cocaine dependence, uncomplicated; F17.210 Nicotine dependence, cigarettes, uncomplicated; Z21 Asymptomatic human immunodeficiency virus [HIV] infection status; E72.20 Disorder of urea cycle metabolism, unspecified; I12.9 Hypertensive chronic kidney disease with stage 1 through stage 4 chronic kidney disease, or unspecified chronic kidney disease; N18.9 Chronic kidney disease, unspecified; K21.9 Gastro-esophageal reflux disease without esophagitis; K59.00 Constipation, unspecified; B35.6 Tinea cruris; B35.3 Tinea pedis; N40.0 Benign prostatic hyperplasia without lower urinary tract symptoms; R63.4 Abnormal weight loss; Z68.24 Body mass index [BMI] 24.0-24.9, adult; Z88.2 Allergy status to sulfonamides
CPT/HCPCS: 36415; 82140; 86803; 87522; Q0162

== ENCOUNTER 2023-08-31 12:50 | Inpatient (IN) | payer OTHER ==
[2023-08-31] MEDS ORDERED: MAGNESIUM HYDROX 2400MG/30ML ORAL SUSPENSION 30 ML CUP PO PRN (15:41)
[2023-08-31] MEDS ORDERED: NALOXONE HCL 0.4 MG/ML VIAL IM PRN (15:41)
[2023-08-31] MEDS ORDERED: BENZOCAINE/MENTHOL (CHLORASEPTIC ) LOZENGE MM PRN (15:41)
[2023-08-31] MEDS ORDERED: POLYETHYLENE GLYCOL (HEALTHYLAX) 3350 17 GM PACKET PO PRN (15:41)
[2023-08-31] MEDS ORDERED: IBUPROFEN 400 MG TABLET (FP) PO PRN (15:41)
[2023-08-31] MEDS ORDERED: guaiFENesin 600 MG TABLET.ER (FP) PO PRN (15:41)
[2023-08-31] MEDS ORDERED: NALOXONE (NARCAN) HCL 4 MG/0.1 ML SPRAY NS PRN (15:41)
[2023-08-31] MEDS ORDERED: BENZONATATE 200 MG CAPSULE PO PRN (15:41)
[2023-08-31] MEDS ORDERED: hydrOXYzine PAMOATE 25 MG CAPSULE (FP) PO PRN (15:41)
[2023-08-31] MEDS ORDERED: LOPERAMIDE HCL 2 MG CAPSULE PO PRN (15:41)
[2023-08-31] MEDS ORDERED: MAG HYDROX/AL HYDROX/SIMETH 30 ML UNIT-DOSE CUP PO PRN (15:41)
[2023-08-31 15:42] VITALS: BMI 22.3
[2023-08-31] MEDS: AMOX TR/POT CLAV 875MG/125MG TABLETS (FP) PO SCH ×2 (19:17→19:21)
[2023-08-31] MEDS: SENNOSIDES 8.6MG TABLET (FP) PO SCH (22:15)
[2023-08-31] MEDS: THIAMINE 100 MG TABLET PO SCH (22:15)
[2023-08-31] MEDS: FAMOTIDINE 20 MG TABLET PO SCH (22:15)
[2023-08-31] MEDS: MELATONIN 5 MG TABLETS PO SCH (22:15)
[2023-08-31] MEDS: ATORVASTATIN CA 10 MG TABLET (FP) PO SCH (22:16)
[2023-08-31] MEDS: CHLORHEXIDINE GLUCONATE 0.12% 15ML CUP MM SCH (22:16)
[2023-08-31] MEDS: ACETAMINOPHEN 325 MG TABLET (FP) PO PRN (22:17)
[2023-09-01] MEDS: BICTEGRAV/EMTRICIT/TENOFOV (BIKTARVY) 50-200-25 MG TABLET PO SCH (07:05)
[2023-09-01] MEDS ORDERED: methaDONE HCL 10 MG TABLET PO SCH (09:00)
[2023-09-01] MEDS: PRENATAL VITAMINS W/ FOLIC ACID TABLET (FP) PO SCH (09:39)
[2023-09-01] MEDS: FERROUS SO4 325 MG TABLET (FP) PO SCH (09:39)
[2023-09-01] MEDS: PANTOPRAZOLE 20 MG TABLET PO SCH (09:39)
[2023-09-01] MEDS: amLODIPine BESYLATE 10 MG TABLET (FP) PO SCH (09:40)
[2023-09-01] MEDS ORDERED: PATIENT'S OWN MEDICATION (NON-FORMULARY) (Sofosbuvir/Velpatasvir [Sofosbuvir-Velpatasvir 4 PO SCH (10:00)
[2023-09-01 12:59] LABS: HEMATOCRIT 33.1 % (35.4-49); HEMOGLOBIN 10.7 GM/dL (11.7-16.9); MCH 29.6 pg (25.7-33.7); MCHC 32.2 g/dl (32.0-35.9); MEAN CELL VOLUME 91.8 fl (80-96); MEAN PLT VOLUME 8.9 fl (7.5-11.1); PLATELET COUNT 217 10^3/uL (134-434); RBC 3.61 M/mm3 (4.00-5.60); RDW 14.9 % (11.9-15.9); WHITE BLOOD COUNT 4.5 K/mm3 (4.0-10.0)
[2023-09-01 13:04] LABS: CHLORIDE 103 mmol/L (98-107); POTASSIUM 4.5 mmol/L (3.5-5.1); SODIUM 137 mmol/L (136-145)
[2023-09-01 13:08] LABS: ALBUMIN 3.7 g/dl (3.4-5.0); ANION GAP 5 mmol/L (4-13); CALCIUM 9.3 mg/dL (8.5-10.1); CO2 29 mmol/L (21-32)
[2023-09-01 13:09] LABS: BLOOD UREA NITROGEN 29.6 mg/dL (7-18); GLUCOSE,RANDOM 77 mg/dL (74-106)
[2023-09-01 13:11] LABS: CREATININE 1.4 mg/dL (0.55-1.3)
[2023-09-01 13:13] LABS: SGOT/AST 19 U/L (15-37); SGPT/ALT 25 U/L (13-61); SYPHILIS W/ RPR CONF NON-REACTIVE (NONREACTIVE)
[2023-09-01 13:14] LABS: BILIRUBIN,TOTAL 0.3 mg/dL (0.2-1); TOT PROT 7.9 g/dl (6.4-8.2)
[2023-09-01 13:16] LABS: ALK PHOS 109 U/L (45-117)
[2023-09-01] MEDS: TOLNAFTATE 1% CREAM 15 GM TUBE TP SCH (21:34)
[2023-09-02] MEDS: IBUPROFEN 600 MG TABLET (FP) PO PRN (06:24)
[2023-09-02] MEDS ORDERED: LACTULOSE 20 GM/30 ML UDC (FOR ORAL USE ONLY) PO PRN (11:31)
[2023-09-02] MEDS: METHYL SALICYLATE/MENTHOL OINT 30 GM TUBE TP SCH (12:35)
[2023-09-02 17:56] LABS: PH,URINE 6.5 (5.0-8.0); URINE APPEARANCE CLEAR; URINE BILIRUBIN NEGATIVE (NEGATIVE); URINE COLOR YELLOW; URINE GLUCOSE (UA) NEGATIVE (NEGATIVE); URINE KETONE NEGATIVE (NEGATIVE); URINE LEUK ESTERASE NEGATIVE (NEGATIVE); URINE NITRITE NEGATIVE (NEGATIVE); URINE PROTEIN NEGATIVE (NEGATIVE); URINE UROBILINOGEN 0.2 mg/dL (0.2-1.0)
[2023-09-03 11:49] LABS: INR 0.99 (0.83-1.09); PROTHROMBIN TIME (PATIENT) 11.2 SEC (9.7-13.0)
[2023-09-08 06:58] VITALS: TEMP 97.3
[2023-09-08 11:56] VITALS: BP 116/72; PULSE 73; RESP 18
== END 2023-09-08 23:36 | disposition short-term general hospital (02) | DRG 772 ==
LOC: YASAS 12:50 → Y3NR 17:29 → Y3W 09-01 15:35
PROVIDERS: ADMIT Allergy & Immunology; ATTEND Psychiatry & Neurology Pain Medicine
PROC: HZ42ZZZ Group Counseling for Substance Abuse Treatment, Cognitive-Behavioral (ICD-10-PCS; principal; 2023-08-31)
DX: F11.20 Opioid dependence, uncomplicated (principal); F14.20 Cocaine dependence, uncomplicated; F17.210 Nicotine dependence, cigarettes, uncomplicated; F41.9 Anxiety disorder, unspecified; Z21 Asymptomatic human immunodeficiency virus [HIV] infection status; I12.9 Hypertensive chronic kidney disease with stage 1 through stage 4 chronic kidney disease, or unspecified chronic kidney disease; N18.9 Chronic kidney disease, unspecified; K21.9 Gastro-esophageal reflux disease without esophagitis; B18.2 Chronic viral hepatitis C; M54.50 Low back pain, unspecified; G89.29 Other chronic pain; R76.11 Nonspecific reaction to tuberculin skin test without active tuberculosis; R10.13 Epigastric pain; R11.2 Nausea with vomiting, unspecified; Z79.899 Other long term (current) drug therapy
CPT/HCPCS: 36415; 71046-TC-FY; 80053; 80305; 80307; 81003; 82140; 82652; 82962; 83735; 85027; 85610; 86780; 86803; 87522; 87811; 93005; 93010

== ENCOUNTER 2023-09-08 12:31 | Observation (INO) | payer OTHER ==
[2023-09-08 15:16] LABS: BASO % 0.4 % (0-2.0); EOS % 1.5 % (0-4.5); HEMATOCRIT 32.6 % (35.4-49); HEMOGLOBIN 10.7 GM/dL (11.7-16.9); LYMPH % 29.1 % (8-40); MCH 29.4 pg (25.7-33.7); MCHC 32.8 g/dl (32.0-35.9); MEAN CELL VOLUME 89.7 fl (80-96); MEAN PLT VOLUME 7.5 fl (7.5-11.1); MONO % 5.8 % (3.8-10.2); NEUT % 63.2 % (42.8-82.8); PLATELET COUNT 234 10^3/uL (134-434); RBC 3.64 M/mm3 (4.00-5.60); RDW 15.2 % (11.9-15.9); WHITE BLOOD COUNT 5.6 K/mm3 (4.0-10.0)
[2023-09-08 15:31] LABS: INR 1.06 (0.83-1.09)
[2023-09-08 15:33] LABS: ACTIVATED PTT 34.8 SECONDS (25.2-36.5)
[2023-09-08] MEDS ORDERED: FAMOTIDINE 20 MG TABLET ONE (15:42)
[2023-09-08] MEDS ORDERED: MAG HYDROX/AL HYDROX/SIMETH 30 ML UNIT-DOSE CUP ONE (15:42)
[2023-09-08] MEDS ORDERED: ONDANSETRON 4 MG/2 ML VIAL ONE (15:43)
[2023-09-08] MEDS: ONDANSETRON 4 MG/2 ML VIAL IVPUSH ONE (15:53)
[2023-09-08] MEDS: MAG HYDROX/AL HYDROX/SIMETH 30 ML UNIT-DOSE CUP PO ONE (15:53)
[2023-09-08] MEDS: FAMOTIDINE 20 MG/50 ML IVPB 20 MG/50 ML MG IVPB ONE (15:53)
[2023-09-08] MEDS: LACTATED RINGERS SOLUTION 1000 ML INFUS.BAG IV ONE (15:53)
[2023-09-08 16:40] LABS: POTASSIUM 4.7 mmol/L (3.5-5.1)
[2023-09-08 16:43] LABS: BLOOD UREA NITROGEN 27.9 mg/dL (7-18); CALCIUM 9.4 mg/dL (8.5-10.1); MAGNESIUM 2.4 mg/dL (1.8-2.4)
[2023-09-08 16:44] LABS: ALBUMIN 3.6 g/dl (3.4-5.0)
[2023-09-08 16:47] LABS: CREATININE 1.5 mg/dL (0.55-1.3)
[2023-09-08 16:48] LABS: BILIRUBIN,TOTAL 0.3 mg/dL (0.2-1); TOT PROT 7.8 g/dl (6.4-8.2)
[2023-09-08] MEDS ORDERED: KETOROLAC TROMETHAMINE 15 MG/ML VIAL ONE (18:59)
[2023-09-08] MEDS: KETOROLAC TROMETHAMINE 15 MG/ML VIAL IVPUSH ONE (19:02)
[2023-09-08] MEDS ORDERED: ATORVASTATIN CA 10 MG TABLET (FP) ONE (22:05)
[2023-09-08] MEDS: ATORVASTATIN CA 10 MG TABLET (FP) PO SCH (22:23)
[2023-09-08 23:10] LABS: URINE APPEARANCE CLEAR; URINE BILIRUBIN NEGATIVE (NEGATIVE); URINE COLOR YELLOW; URINE GLUCOSE (UA) NEGATIVE (NEGATIVE); URINE KETONE NEGATIVE (NEGATIVE); URINE LEUK ESTERASE NEGATIVE (NEGATIVE); URINE NITRITE NEGATIVE (NEGATIVE); URINE PROTEIN NEGATIVE (NEGATIVE); URINE UROBILINOGEN 0.2 mg/dL (0.2-1.0)
[2023-09-09] MEDS ORDERED: ONDANSETRON 4 MG/2 ML VIAL IVPUSH PRN (05:25)
[2023-09-09] MEDS: MINERAL OIL ENEMA 133 ML ENEMA RC ONE ×2 (05:59→09:17)
[2023-09-09] MEDS ORDERED: methaDONE HCL 40 MG DISPERSABLE TABLET PO SCH (06:00)
[2023-09-09] MEDS ORDERED: MAGNESIUM CITRATE 300 ML BOTTLE ONE (06:06)
[2023-09-09] MEDS: METHYLNALTREXONE BROMIDE 8 MG/0.4 ML SYRINGE SQ ONE (06:12)
[2023-09-09] MEDS: MAGNESIUM CITRATE 300 ML BOTTLE PO ONE (06:13)
[2023-09-09] MEDS ORDERED: SIMETHICONE 80 MG TAB.CHEW (FP) PO PRN ×2 (06:31)
[2023-09-09] MEDS: SIMETHICONE 80 MG TAB.CHEW (FP) PO ONE (07:03)
[2023-09-09 08:14] LABS: HEMATOCRIT 32.2 % (35.4-49); HEMOGLOBIN 10.8 GM/dL (11.7-16.9); MCH 30.2 pg (25.7-33.7); MCHC 33.6 g/dl (32.0-35.9); MEAN CELL VOLUME 89.9 fl (80-96); MEAN PLT VOLUME 8.5 fl (7.5-11.1); PLATELET COUNT 236 10^3/uL (134-434); RBC 3.58 M/mm3 (4.00-5.60); WHITE BLOOD COUNT 4.3 K/mm3 (4.0-10.0)
[2023-09-09 08:23] LABS: POTASSIUM 4.5 mmol/L (3.5-5.1)
[2023-09-09 08:29] LABS: ALBUMIN 3.5 g/dl (3.4-5.0); BLOOD UREA NITROGEN 29.2 mg/dL (7-18); MAGNESIUM 2.5 mg/dL (1.8-2.4)
[2023-09-09 08:31] LABS: CREATININE 1.7 mg/dL (0.55-1.3); PHOSPHOROUS 4.3 mg/dL (2.5-4.9)
[2023-09-09 08:33] LABS: BILIRUBIN,TOTAL 0.3 mg/dL (0.2-1); TOT PROT 7.5 g/dl (6.4-8.2)
[2023-09-09] MEDS ORDERED: POLYETHYLENE GLYCOL (HEALTHYLAX) 3350 17 GM PACKET PO SCH (10:00)
[2023-09-09] MEDS ORDERED: methaDONE HCL 10 MG TABLET ONE (10:18)
[2023-09-09] MEDS ORDERED: methaDONE HCL 40 MG DISPERSABLE TABLET ONE (10:18)
[2023-09-09] MEDS: methaDONE HCL 40 MG DISPERSABLE TABLET PO ONE (10:22)
[2023-09-09] MEDS: POLYETHYLENE GLYCOL (HEALTHYLAX) 3350 17 GM PACKET PO SCH (10:23)
[2023-09-09] MEDS: BICTEGRAV/EMTRICIT/TENOFOV (BIKTARVY) 50-200-25 MG TABLET PO SCH (10:23)
[2023-09-09] MEDS: amLODIPine BESYLATE 10 MG TABLET (FP) PO SCH (10:23)
[2023-09-09] MEDS: PANTOPRAZOLE 40 MG TABLET PO SCH (10:23)
[2023-09-09] MEDS ORDERED: CALAMINE 8% TOPICAL LOTION 177 ML BOTTLE TP PRN (10:46)
[2023-09-09 17:20] VITALS: RESP 18
[2023-09-09 17:51] VITALS: BP 121/71; PULSE 65; TEMP 98.2; BMI 22.8
== END 2023-09-09 18:29 | disposition other institution (70) ==
LOC: JER 12:31 → JERBED 20:36 → J6S 09-09 17:35
PROVIDERS: ADMIT Internal Medicine; ATTEND Internal Medicine
PROC: 3E033GC Introduction of Other Therapeutic Substance into Peripheral Vein, Percutaneous Approach (ICD-10-PCS; principal; 2023-09-08)
PROC: 3E0333Z Introduction of Anti-inflammatory into Peripheral Vein, Percutaneous Approach (ICD-10-PCS; 2023-09-08)
PROC: 3E0337Z Introduction of Electrolytic and Water Balance Substance into Peripheral Vein, Percutaneous Approach (ICD-10-PCS; 2023-09-08)
DX: R10.13 Epigastric pain (principal); F11.90 Opioid use, unspecified, uncomplicated; I10 Essential (primary) hypertension; E78.5 Hyperlipidemia, unspecified; K59.00 Constipation, unspecified; K21.9 Gastro-esophageal reflux disease without esophagitis; N40.0 Benign prostatic hyperplasia without lower urinary tract symptoms; F41.9 Anxiety disorder, unspecified; Z91.199 Patient's noncompliance with other medical treatment and regimen due to unspecified reason; B20 Human immunodeficiency virus [HIV] disease; G89.29 Other chronic pain; K76.89 Other specified diseases of liver; M54.50 Low back pain, unspecified; B19.20 Unspecified viral hepatitis C without hepatic coma; K85.90 Acute pancreatitis without necrosis or infection, unspecified; Z88.8 Allergy status to other drugs, medicaments and biological substances
CPT/HCPCS: 36415; 70486-TC; 74177-TC; 76536-TC; 80053; 81003; 83690; 83735; 84100; 84484; 85025; 85027; 85610; 85730; 87086; 87522; 93005; 93010; 96365; 96375; 99285-25; G0378

== ENCOUNTER 2023-09-09 19:06 | Inpatient (IN) | payer OTHER ==
[2023-09-09 20:11] VITALS: BMI 23.7
[2023-09-09] MEDS ORDERED: MAGNESIUM HYDROX 2400MG/30ML ORAL SUSPENSION 30 ML CUP PO PRN (20:46)
[2023-09-09] MEDS ORDERED: P-EPHED 60MG/TRIPROLIDI 2.5MG TABLET PO PRN (20:46)
[2023-09-09] MEDS ORDERED: NICOTINE POLACRILEX 2 MG GUM BUC PRN (20:46)
[2023-09-09] MEDS ORDERED: ACETAMINOPHEN 325 MG TABLET (FP) PO PRN (20:46)
[2023-09-09] MEDS ORDERED: LOPERAMIDE HCL 2 MG CAPSULE PO PRN (20:46)
[2023-09-09] MEDS ORDERED: guaiFENesin 600 MG TABLET.ER (FP) PO PRN (20:46)
[2023-09-09] MEDS ORDERED: IBUPROFEN 400 MG TABLET (FP) PO PRN (20:46)
[2023-09-09] MEDS ORDERED: BENZOCAINE/MENTHOL (CHLORASEPTIC ) LOZENGE MM PRN (20:46)
[2023-09-09] MEDS ORDERED: BISACODYL 5 MG TABLET.DR (FP) PO PRN (20:46)
[2023-09-09] MEDS ORDERED: BENZONATATE 200 MG CAPSULE PO PRN (20:46)
[2023-09-09] MEDS ORDERED: METHOCARBAMOL 500 MG TABLET PO PRN (20:46)
[2023-09-09] MEDS ORDERED: IBUPROFEN 600 MG TABLET (FP) PO PRN (20:46)
[2023-09-10] MEDS: MELATONIN 5 MG TABLETS PO SCH (00:21)
[2023-09-10] MEDS: THIAMINE 100 MG TABLET PO SCH (00:22)
[2023-09-10] MEDS: DOCUSATE SODIUM 100 MG CAPSULE (FP) PO SCH (02:21)
[2023-09-10] MEDS: POLYETHYLENE GLYCOL (HEALTHYLAX) 3350 17 GM PACKET PO SCH (02:21)
[2023-09-10] MEDS ORDERED: methaDONE HCL 10 MG TABLET PO SCH (06:30)
[2023-09-10] MEDS: BICTEGRAV/EMTRICIT/TENOFOV (BIKTARVY) 50-200-25 MG TABLET PO SCH (07:04)
[2023-09-10] MEDS: TAMSULOSIN HCL 0.4 MG CAP PO SCH (07:30)
[2023-09-10] MEDS: amLODIPine BESYLATE 10 MG TABLET (FP) PO SCH (09:35)
[2023-09-10] MEDS: PANTOPRAZOLE 20 MG TABLET PO SCH (09:35)
[2023-09-10] MEDS: PRENATAL VITAMINS W/ FOLIC ACID TABLET (FP) PO SCH (09:35)
[2023-09-10] MEDS ORDERED: PATIENT'S OWN MEDICATION (NON-FORMULARY) (Sofosbuvir/Velpatas/Voxilaprev [Vosevi 400-100-1 PO SCH (13:53)
[2023-09-10] MEDS: PATIENT'S OWN MEDICATION (NON-FORMULARY) (Sofosbuvir/Velpatas/Voxilaprev [Vosevi 400-100-1 PO SCH ×2 (14:17→16:41)
[2023-09-10] MEDS: ATORVASTATIN CA 10 MG TABLET (FP) PO SCH (21:35)
[2023-09-11] MEDS: MAG HYDROX/AL HYDROX/SIMETH 30 ML UNIT-DOSE CUP PO PRN (05:03)
[2023-09-13] MEDS: ONDANSETRON *ODT* 4 MG TABLET SL PRN (13:47)
[2023-09-17] MEDS: LACTULOSE 20 GM/30 ML UDC (FOR ORAL USE ONLY) PO SCH ×2 (09:46→17:47)
[2023-09-17] MEDS: CHOLECALCIFEROL (VIT D3) 400 UNIT (10 MCG) TABLET PO SCH (16:27)
[2023-09-17] MEDS: FAMOTIDINE 20 MG TABLET PO SCH (21:09)
[2023-09-19] MEDS: SENNOSIDES 8.6MG TABLET (FP) PO PRN (21:09)
[2023-09-21 09:21] VITALS: RESP 18
[2023-09-21] MEDS: ACETAMINOPHEN 325 MG TABLET (FP) PO PRN (15:38)
[2023-09-22 06:52] VITALS: TEMP 97.3
[2023-09-22 09:23] VITALS: BP 144/83; PULSE 79
== END 2023-09-22 09:05 | disposition home or self-care (01) | DRG 772 ==
LOC: YASAS 19:06 → Y3W 23:23
PROVIDERS: ADMIT Allergy & Immunology; ATTEND Psychiatry & Neurology Pain Medicine
PROC: HZ42ZZZ Group Counseling for Substance Abuse Treatment, Cognitive-Behavioral (ICD-10-PCS; principal; 2023-09-09)
DX: F11.20 Opioid dependence, uncomplicated (principal); F14.20 Cocaine dependence, uncomplicated; F17.210 Nicotine dependence, cigarettes, uncomplicated; Z21 Asymptomatic human immunodeficiency virus [HIV] infection status; E72.20 Disorder of urea cycle metabolism, unspecified; I12.9 Hypertensive chronic kidney disease with stage 1 through stage 4 chronic kidney disease, or unspecified chronic kidney disease; N18.9 Chronic kidney disease, unspecified; K59.03 Drug induced constipation; K21.9 Gastro-esophageal reflux disease without esophagitis; B18.2 Chronic viral hepatitis C; Z79.899 Other long term (current) drug therapy; Z86.11 Personal history of tuberculosis; Z88.5 Allergy status to narcotic agent; Z88.2 Allergy status to sulfonamides; Z88.8 Allergy status to other drugs, medicaments and biological substances
CPT/HCPCS: 80305; 80307; 82140; Q0162